=== PATIENT | female | born 1985 | race Caucasian/White ===

== ENCOUNTER 2017-04-11 11:37 | Inpatient (IN) | payer OTHER ==
[~2017-04-11] VITALS: Ht 170.2 cm; Wt 62.6 kg
[2017-04-11] MEDS ORDERED: Norco 5mg/325mg tab ORAL PRN ×2 (15:15→16:15)
[2017-04-11 16:00] VITALS: BP 98/66
[2017-04-11] MEDS ORDERED: D5 1/2NS 1,000 ML IV SCH (16:15)
--- NOTE | 2017-04-11 16:46 | History & Physical ---
History and Physical History & Physicial dictated for Int Med-Dr Davis no. [id number]. KULDIP WORTHINGTON Apr 11, 2017 16:46
[2017-04-11] MEDS ORDERED: Morphine Sulfate 2mg/ml Inj IM PRN (17:15)
[2017-04-11] MEDS ORDERED: DiphenhydrAMINE 50mg/ml Inj IVP PRN (17:15)
[2017-04-11 20:00] VITALS: BP 126/71
[2017-04-11 20:06] LABS: BASOPHILS % (AUTO) 1.1 % (0.0-2.0); EOSINOPHILS % (AUTO) 7.3 % (0.0-3.0); LYMPHOCYTES % (AUTO) 44.9 % (20.0-45.0); MEAN CORPUSCULAR HEMOGLOBIN 29.7 PG (27.0-31.0); MEAN CORPUSCULAR HGB CONC 31.7 G/DL (32.0-36.0); MEAN CORPUSCULAR VOLUME 94 FL (80-99); MEAN PLATELET VOLUME 7.7 FL (6.5-10.1); MONOCYTES % (AUTO) 8.9 % (1.0-10.0); NEUTROPHILS % (AUTO) 37.8 % (45.0-75.0); PLATELET COUNT 196 K/UL (150-450); RED BLOOD COUNT 4.23 M/UL (4.20-5.40); RED CELL DISTRIBUTION WIDTH 11.6 % (11.6-14.8); WHITE BLOOD COUNT 8.3 K/UL (4.8-10.8)
[2017-04-11 20:47] LABS: ALANINE AMINOTRANSFERASE 146 U/L (12-78); ALBUMIN/GLOBULIN RATIO 1.3 (1.0-2.7); ANION GAP 8 mmol/L (5-15); ASPARTATE AMINO TRANSFERASE 544 U/L (15-37); CALCIUM 8.8 MG/DL (8.5-10.1); CARBON DIOXIDE 24 MMOL/L (21-32); CHLORIDE 109 MMOL/L (98-107); CREATININE 0.8 MG/DL (0.55-1.30); GLOMERULAR FILTRATION RATE > 60 mL/min (>60); POTASSIUM 4.4 MMOL/L (3.5-5.1); SODIUM 141 MMOL/L (136-145); URIC ACID 3.8 MG/DL (2.6-7.2)
--- NOTE | 2017-04-11 22:30 | History and Physical Report ---
DATE OF ADMISSION: 04/11/2017 CHIEF COMPLAINT: The patient is a 32-year-old white female, presents with chief complaint of bilateral arm pain. HISTORY OF PRESENT ILLNESS: The patient states she went to the gym on 04/07/2017. The patient awoke on Monday morning with bilateral upper arm pain. The patient states her arms "on fire". This worsened from Monday to Monday. The patient presented to [facility] emergency room today 04/11/2017. CPK was found to be elevated at 25,603. The patient is admitted with bilateral upper extremity pain and rhabdomyolysis. PAST MEDICAL HISTORY: The patient denies. The patient has a history of childhood epilepsy, however, has not had a seizure since she was a child. PAST SURGICAL HISTORY: Significant for bilateral feet bunionectomy. CURRENT MEDICATIONS: Naprosyn 500 mg one tablet p.o. twice daily p.r.n. ALLERGIES: Phenobarbital. SOCIAL HISTORY: The patient is single and unemployed. The patient denies tobacco or alcohol use. FAMILY HISTORY: Negative for diabetes or coronary disease. REVIEW OF SYSTEMS: CONSTITUTIONAL: The patient denies weight loss or gain. The patient denies fevers or chills. HEENT: The patient denies ear or throat pain. The patient denies headache. CARDIOVASCULAR: The patient denies palpitations or chest pain. CHEST: The patient denies wheeze or shortness of breath. ABDOMEN: The patient denies nausea, vomiting, diarrhea, or constipation. GENITOURINARY: The patient denies dysuria or increased frequency of urination. NEUROMUSCULAR: The patient denies seizures or generalized weakness. PHYSICAL EXAMINATION: GENERAL: The patient is a well-developed and well-nourished, white female, in no apparent distress. VITAL SIGNS: Temperature is 98.5 degrees, respirations 16, pulse 65, and blood pressure 142/91. HEENT: Eyes, pupils equal and responsive to light and accommodation. Extraocular movements are intact. NECK: Supple without lymphadenopathy. CHEST: Lungs are clear to auscultation bilaterally without wheezes or rales. CARDIOVASCULAR: Regular rhythm and rate. S1 and S2 normal without murmurs, rubs, or gallops. ABDOMEN: Soft, nontender, and nondistended. Positive bowel sounds. No evidence of hepatosplenomegaly. Currently, no rebound or guarding noted. EXTREMITIES: Negative for clubbing, cyanosis, or edema. RECTAL/GENITAL: Refused. NEUROLOGIC: Cranial nerves II through XII are grossly intact without focal deficits. Motor strength is 5/5 bilaterally. Deep tendon reflexes are 2+ plantar. LABORATORY AND DIAGNOSTIC DATA: WBC 7.8, hemoglobin 13.7, hematocrit 40.5 and platelets 201,000. Sodium 134, potassium 3.5, chloride 99, CO2 27, BUN 17, creatinine 0.82 and glucose 92. Total CPK elevated at 25,603. BNP normal at 20. ALT elevated at 94 and AST elevated at 423. ASSESSMENT: This is a 32-year-old white female. 1. Bilateral arm pain. 2. Rhabdomyolysis. 3. Elevated liver function tests. TREATMENT: 1. Bilateral upper arm pain/rhabdomyolysis. The patient is currently receiving intravenous hydration. This will be continued until CPK levels have approached normal. Serial CPK levels will be performed daily. We will follow recommendations of Nephrology. 2. Elevated liver function tests, may be secondary to shock liver. A Gastroenterology consultation is pending. Driss Mcdonald M.D. DR: DICK JOB#: [id number] CC:
[2017-04-11] MEDS: Morphine Sulfate 2mg/ml Inj IVP PRN (23:44)
[2017-04-11 23:53] VITALS: BP 121/73
[2017-04-12 02:14] LABS: APPEARANCE,URINE CLEAR; KETONES,URINE NEGATIVE (NEGATIVE); LEUKOCYTE ESTERASE ,URINE 1+ (NEGATIVE); NITRITE,URINE NEGATIVE (NEGATIVE); PH,URINE 7 (4.5-8.0); PROTEIN,URINE NEGATIVE (NEGATIVE); UROBILINOGEN,URINE NORMAL MG/DL (0.0-1.0)
[2017-04-12 02:39] LABS: SQUAMOUS EPITHELIAL CELL,UR OCCASIONAL /LPF (NONE/OCC); WBC,URINE 0-2 /HPF (0 - 2)
[2017-04-12 03:29] VITALS: BP 108/51
[2017-04-12 07:41] LABS: BASOPHILS % (AUTO) 1.1 % (0.0-2.0); EOSINOPHILS % (AUTO) 9.2 % (0.0-3.0); LYMPHOCYTES % (AUTO) 48.2 % (20.0-45.0); MEAN CORPUSCULAR HEMOGLOBIN 31.9 PG (27.0-31.0); MEAN CORPUSCULAR HGB CONC 34.7 G/DL (32.0-36.0); MEAN CORPUSCULAR VOLUME 92 FL (80-99); MEAN PLATELET VOLUME 8.5 FL (6.5-10.1); MONOCYTES % (AUTO) 6.6 % (1.0-10.0); PLATELET COUNT 189 K/UL (150-450); RED BLOOD COUNT 4.01 M/UL (4.20-5.40); RED CELL DISTRIBUTION WIDTH 11.8 % (11.6-14.8)
[2017-04-12 08:00] VITALS: BP 130/58
[2017-04-12 08:24] LABS: ALANINE AMINOTRANSFERASE 142 U/L (12-78); ALBUMIN/GLOBULIN RATIO 1.2 (1.0-2.7); ANION GAP 10 mmol/L (5-15); ASPARTATE AMINO TRANSFERASE 532 U/L (15-37); CALCIUM 8.5 MG/DL (8.5-10.1); CARBON DIOXIDE 22 MMOL/L (21-32); CHLORIDE 109 MMOL/L (98-107); CKMB 5.4 NG/ML (0.0-3.6); CREATININE 0.6 MG/DL (0.55-1.30); GLOMERULAR FILTRATION RATE > 60 mL/min (>60); MAGNESIUM 1.6 MG/DL (1.8-2.4); PHOSPHORUS 3.9 MG/DL (2.5-4.9); POTASSIUM 4.2 MMOL/L (3.5-5.1); SODIUM 141 MMOL/L (136-145); TOTAL PROTEIN 5.7 G/DL (6.4-8.2)
--- NOTE | 2017-04-12 10:30 | Diagnostic Imaging Report ---
Indication: Abnormal renal function tests, history of rhabdomyolysis Technique: Grayscale and duplex images of the kidneys, retroperitoneum, and bladder were obtained. Comparison: Findings: Right kidney measures 11.9 cm in length. Left kidney measures 11.1 cm in length. Both kidneys demonstrate normal echogenicity. No hydronephrosis. There are small renal cysts bilaterally.. Color Doppler imaging demonstrates normal renal perfusion, no hypovascular areas to suggest infarction.. Normal inferior vena cava. Bladder is normal. Impression: Negative for hydronephrosis or other significant abnormality Incidental finding bilateral renal cysts.
[2017-04-12 12:00] VITALS: BP 124/78
--- NOTE | 2017-04-12 12:42 | Internal Med Progress Note ---
Subjective Date of Service: Apr 12, 2017 Physician Name Driss Worthington Attending Physician Indra Davis MD Current Medications Medications (Trade) Dose Ordered Sig/Marisol Route PRN Reason Start Time Stop Time Status Last Admin Dose Admin Acetaminophen (Tylenol) 650 mg Q4H PRN ORAL Mild Pain/Temp > 100.5 04/11/17 15:15 05/11/17 15:14 Diphenhydramine HCl (Benadryl) 25 mg Q6H PRN IVP Itching 04/11/17 17:15 05/11/17 17:14 Morphine Sulfate (Morphine Sulfate) 2 mg Q4H PRN IVP For Pain 4-10 04/11/17 19:45 04/18/17 19:44 04/11/17 23:44 Ondansetron HCl (Zofran) 4 mg Q4H PRN IVP Nausea & Vomiting 04/11/17 15:15 05/11/17 15:14 Sodium Chloride 1,000 ml @ 150 mls/hr Q6H40M IV 04/11/17 17:30 05/11/17 17:29 04/12/17 12:12 Allergies: Coded Allergies: HYDROCODONE (Verified Allergy, Mild, Itching, 04/11/17) PHENOBARBITAL (Verified Allergy, Unknown, rash, 04/11/17) 25 years ago, rash ROS Limited/Unobtainable: No Constitutional: Reports: no symptoms HEENT: Reports: no symptoms Cardiovascular: Reports: no symptoms Respiratory: Reports: no symptoms Gastrointestinal/Abdominal: Reports: no symptoms Genitourinary: Reports: no symptoms Neurologic/Psychiatric: Reports: no symptoms Subjective 32 YO F with bilat upper arm pain, now rhabdomyolysis. Wants ortho consult for possible "compartment syndrome". Objective Last Vital Signs Date Time Temp Pulse Resp B/P (MAP) Pulse Ox O2 Delivery O2 Flow Rate FiO2 04/12/17 12:00 98.1 59 13 124/78 99 Room Air General Appearance: WD/WN, no apparent distress, alert EENT: PERRL/EOMI, normal ENT inspection, TMs normal Neck: non-tender, normal alignment, supple Cardiovascular: normal peripheral pulses, normal rate, regular rhythm, no gallop/murmur, no JVD Respiratory/Chest: chest wall non-tender, lungs clear, normal breath sounds, no respiratory distress, no accessory muscle use Abdomen: normal bowel sounds, non tender, soft, no organomegaly, no mass Extremities: normal range of motion, non-tender 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6-14.8) 11.8 % (11.6-14.8) Platelet Count 196 K/UL (150-450) 189 K/UL (150-450) Mean Platelet Volume 7.7 FL (6.5-10.1) 8.5 FL (6.5-10.1) Neutrophils (%) (Auto) 37.8 % (45.0-75.0) L 35.0 % (45.0-75.0) L Lymphocytes (%) (Auto) 44.9 % (20.0-45.0) 48.2 % (20.0-45.0) H Monocytes (%) (Auto) 8.9 % (1.0-10.0) 6.6 % (1.0-10.0) Eosinophils (%) (Auto) 7.3 % (0.0-3.0) H 9.2 % (0.0-3.0) H Basophils (%) (Auto) 1.1 % (0.0-2.0) 1.1 % (0.0-2.0) Sodium Level 141 MMOL/L (136-145) 141 MMOL/L (136-145) Potassium Level 4.4 MMOL/L (3.5-5.1) 4.2 MMOL/L (3.5-5.1) Chloride Level 109 MMOL/L (98-107) H 109 MMOL/L (98-107) H Carbon Dioxide Level 24 MMOL/L (21-32) 22 MMOL/L (21-32) Anion Gap 8 mmol/L (5-15) 10 mmol/L (5-15) Blood Urea Nitrogen 11 mg/dL (7-18) 12 mg/dL (7-18) Creatinine 0.8 MG/DL (0.55-1.30) 0.6 MG/DL (0.55-1.30) Estimat Glomerular Filtration Rate > 60 mL/min (>60) > 60 mL/min (>60) Glucose Level 89 MG/DL (74-106) 87 MG/DL (74-106) Uric Acid 3.8 MG/DL (2.6-7.2) Calcium Level 8.8 MG/DL (8.5-10.1) 8.5 MG/DL (8.5-10.1) Total Bilirubin 0.6 MG/DL (0.2-1.0) 0.4 MG/DL (0.2-1.0) Aspartate Amino Transf (AST/SGOT) 544 U/L (15-37) H 532 U/L (15-37) H Alanine Aminotransferase (ALT/SGPT) 146 U/L (12-78) H 142 U/L (12-78) H Alkaline Phosphatase 55 U/L (46-116) 49 U/L (46-116) Total Creatine Kinase > 1000 U/L (26-308) H 36234 U/L (26-308) H Total Protein 6.0 G/DL (6.4-8.2) L 5.7 G/DL (6.4-8.2) L Albumin 3.4 G/DL (3.4-5.0) 3.1 G/DL (3.4-5.0) L Globulin 2.6 g/dL 2.6 g/dL Albumin/Globulin Ratio 1.3 (1.0-2.7) 1.2 (1.0-2.7) Urine Color Pale yellow Urine Appearance Clear Urine pH 7 (4.5-8.0) Urine Specific [place] 1.005 (1.005-1.035) Urine Protein Negative (NEGATIVE) Urine Glucose (UA) Negative (NEGATIVE) Urine Ketones Negative (NEGATIVE) Urine Occult Blood 1+ (NEGATIVE) H Urine Nitrite Negative (NEGATIVE) Urine Bilirubin Negative (NEGATIVE) Urine Urobilinogen Normal MG/DL (0.0-1.0) Urine Leukocyte Esterase 1+ (NEGATIVE) H Urine RBC 2-4 /HPF (0 - 2) H Urine WBC 0-2 /HPF (0 - 2) Urine Squamous Epithelial Cells Occasional /LPF Urine Bacteria None /HPF (NONE) Urine Eosinophils None seen Urine Random Sodium 81 MEQ/L (20-110) Urine Potassium Timed 13 mmol/L (12-62) Erythrocyte Sedimentation Rate 5 MM/HR (0-20) Phosphorus Level 3.9 MG/DL (2.5-4.9) Magnesium Level 1.6 MG/DL (1.8-2.4) L Creatine Kinase MB 5.4 NG/ML (0.0-3.6) H Creatine Kinase MB Relative Index 0.0 C-Reactive Protein, Quantitative < 0.4 mg/dL (0.00-0.90) Assessment/Plan Problem List: (1) rhabdomyolitis Assessment & Plan: Improving. Await ortho consult. (2) Arm pain (3) Elevated liver enzymes Assessment & Plan: Await GI consult. Status: progressing DRISS WORTHINGTON Apr 12, 2017 12:42
[2017-04-12] MEDS ORDERED: D5 1/2NS 1000ml IV ONE (15:53)
[2017-04-12] MEDS ORDERED: Tubing IV Secondary IV ONE (15:53)
[2017-04-12 16:15] VITALS: BP 111/54
--- NOTE | 2017-04-12 17:38 | Consultation ---
History of Present Illness General Date patient seen: Apr 12, 2017 Referring physician: Dr. Mcdonald Reason for Consultation: inpatient management Present Illness HPI 32 years presents with severe bilateral biceps pain, after heavy exercise. Pt was seen by [facility] and was diagnosed with rhabdomyolysis and transferred to [facility]. Allergies: Coded Allergies: HYDROCODONE (Verified Allergy, Mild, Itching, 04/11/17) PHENOBARBITAL (Verified Allergy, Unknown, rash, 04/11/17) 25 years ago, rash Patient History Healthcare decision maker Resuscitation status Full Code Advanced Directive on File No Review of Systems Musculoskeletal: Reports: muscle pain All Other Systems: negative except mentioned in HPI Physical Exam General Appearance: WD/WN HEENT: normocephalic, atraumatic Neck: non-tender, normal alignment Respiratory/Chest: chest wall non-tender, normal breath sounds Breasts: no masses Cardiovascular/Chest: normal rate Last 24 Hour Vital Signs Date Time Temp Pulse Resp B/P (MAP) Pulse Ox O2 Delivery O2 Flow Rate FiO2 04/12/17 16:15 97.9 52 21 111/54 97 Room Air 04/12/17 12:00 98.1 59 13 124/78 99 Room Air 04/12/17 08:00 96.8 56 16 130/58 97 Room Air 04/12/17 03:29 97.7 51 20 108/51 97 Room Air 04/11/17 23:53 98.1 67 20 121/73 98 Room Air 04/11/17 20:00 97.9 55 20 126/71 97 Room Air 55 Laboratory Tests Test 04/11/17 19:25 04/12/17 01:00 04/12/17 06:25 White Blood Count 8.3 K/UL (4.8-10.8) 8.0 K/UL (4.8-10.8) Red Blood Count 4.23 M/UL (4.20-5.40) 4.01 M/UL (4.20-5.40) L Hemoglobin 12.6 G/DL (12.0-16.0) 12.8 G/DL (12.0-16.0) Hematocrit 39.6 % (37.0-47.0) 36.9 % (37.0-47.0) L Mean Corpuscular Volume 94 FL (80-99) 92 FL (80-99) Mean Corpuscular Hemoglobin 29.7 PG (27.0-31.0) 31.9 PG (27.0-31.0) H Mean Corpuscular Hemoglobin Concent 31.7 G/DL (32.0-36.0) L 34.7 G/DL (32.0-36.0) Red Cell Distribution Width 11.6 % (11.6-14.8) 11.8 % (11.6-14.8) Platelet Count 196 K/UL (150-450) 189 K/UL (150-450) Mean Platelet Volume 7.7 FL (6.5-10.1) 8.5 FL (6.5-10.1) Neutrophils (%) (Auto) 37.8 % (45.0-75.0) L 35.0 % (45.0-75.0) L Lymphocytes (%) (Auto) 44.9 % (20.0-45.0) 48.2 % (20.0-45.0) H Monocytes (%) (Auto) 8.9 % (1.0-10.0) 6.6 % (1.0-10.0) Eosinophils (%) (Auto) 7.3 % (0.0-3.0) H 9.2 % (0.0-3.0) H Basophils (%) (Auto) 1.1 % (0.0-2.0) 1.1 % (0.0-2.0) Sodium Level 141 MMOL/L (136-145) 141 MMOL/L (136-145) Potassium Level 4.4 MMOL/L (3.5-5.1) 4.2 MMOL/L (3.5-5.1) Chloride Level 109 MMOL/L (98-107) H 109 MMOL/L (98-107) H Carbon Dioxide Level 24 MMOL/L (21-32) 22 MMOL/L (21-32) Anion Gap 8 mmol/L (5-15) 10 mmol/L (5-15) Blood Urea Nitrogen 11 mg/dL (7-18) 12 mg/dL (7-18) Creatinine 0.8 MG/DL (0.55-1.30) 0.6 MG/DL (0.55-1.30) Estimat Glomerular Filtration Rate > 60 mL/min (>60) > 60 mL/min (>60) Glucose Level 89 MG/DL (74-106) 87 MG/DL (74-106) Uric Acid 3.8 MG/DL (2.6-7.2) Calcium Level 8.8 MG/DL (8.5-10.1) 8.5 MG/DL (8.5-10.1) Total Bilirubin 0.6 MG/DL (0.2-1.0) 0.4 MG/DL (0.2-1.0) Aspartate Amino Transf (AST/SGOT) 544 U/L (15-37) H 532 U/L (15-37) H Alanine Aminotransferase (ALT/SGPT) 146 U/L (12-78) H 142 U/L (12-78) H Alkaline Phosphatase 55 U/L (46-116) 49 U/L (46-116) Total Creatine Kinase > 1000 U/L (26-308) H 47808 U/L (26-308) H Total Protein 6.0 G/DL (6.4-8.2) L 5.7 G/DL (6.4-8.2) L Albumin 3.4 G/DL (3.4-5.0) 3.1 G/DL (3.4-5.0) L Globulin 2.6 g/dL 2.6 g/dL Albumin/Globulin Ratio 1.3 (1.0-2.7) 1.2 (1.0-2.7) Urine Color Pale yellow Urine Appearance Clear Urine pH 7 (4.5-8.0) Urine Specific [place] 1.005 (1.005-1.035) Urine Protein Negative (NEGATIVE) Urine Glucose (UA) Negative (NEGATIVE) Urine Ketones Negative (NEGATIVE) Urine Occult Blood 1+ (NEGATIVE) H Urine Nitrite Negative (NEGATIVE) Urine Bilirubin Negative (NEGATIVE) Urine Urobilinogen Normal MG/DL (0.0-1.0) Urine Leukocyte Esterase 1+ (NEGATIVE) H Urine RBC 2-4 /HPF (0 - 2) H Urine WBC 0-2 /HPF (0 - 2) Urine Squamous Epithelial Cells Occasional /LPF Urine Bacteria None /HPF (NONE) Urine Eosinophils None seen Urine Random Sodium 81 MEQ/L (20-110) Urine Potassium Timed 13 mmol/L (12-62) Erythrocyte Sedimentation Rate 5 MM/HR (0-20) Phosphorus Level 3.9 MG/DL (2.5-4.9) Magnesium Level 1.6 MG/DL (1.8-2.4) L Creatine Kinase MB 5.4 NG/ML (0.0-3.6) H Creatine Kinase MB Relative Index 0.0 C-Reactive Protein, Quantitative < 0.4 mg/dL (0.00-0.90) Height (Feet): 5 Height (Inches): 7.00 Weight (Pounds): 138 Medications Current Medications Medications (Trade) Dose Ordered Sig/Marisol Route PRN Reason Start Time Stop Time Status Last Admin Dose Admin Acetaminophen (Tylenol) 650 mg Q4H PRN ORAL Mild Pain/Temp > 100.5 04/11/17 15:15 05/11/17 15:14 Diphenhydramine HCl (Benadryl) 25 mg Q6H PRN IVP Itching 04/11/17 17:15 05/11/17 17:14 Morphine Sulfate (Morphine Sulfate) 2 mg Q4H PRN IVP For Pain 4-10 04/11/17 19:45 04/18/17 19:44 04/11/17 23:44 Ondansetron HCl (Zofran) 4 mg Q4H PRN IVP Nausea & Vomiting 04/11/17 15:15 05/11/17 15:14 Sodium Chloride 1,000 ml @ 150 mls/hr Q6H40M IV 04/11/17 17:30 05/11/17 17:29 04/12/17 12:12 Assessment/Plan Problem List: (1) rhabdomyolitis (2) Arm pain ICD Codes: M79.603 - Pain in arm, unspecified SNOMED: [id number] Assessment/Plan iv fluids check electrolytes check CPK [email or web address] Nicole Apr 12, 2017 17:38
--- NOTE | 2017-04-12 18:24 | GI Initial Consult Note ---
History of Present Illness General Date patient seen: Apr 12, 2017 Time patient seen: 10:00 Reason for Hospitalization: RHABDOMYLYSIS Referring physician: Dr. Mcdonald Reason for Consultation: ELEVATED LFTs Present Illness HPI The patient is a 32-year-old white female, presents with chief complaint of bilateral arm pain. The patient states she went to the gym on 04/07/2017. The patient awoke on Monday morning with bilateral upper arm pain. The patient states her arms "on fire". This worsened from Monday to Monday. The patient presented to [facility] emergency room today 04/11/2017. CPK was found to be elevated at 25,603. The patient is admitted with bilateral upper extremity pain and rhabdomyolysis. GI consulted for elevated LFTs. HPI as noted above. Pt seen on floor, awake A& Ox4 NAD with no active s/sx of N/V/D. Still c/o of arm pain, tender but tolerable. She presents today with elevated LFTs and elevated CK. No other noted medical history. Med list reviewed/reconciled: Yes Allergies: Coded Allergies: HYDROCODONE (Verified Allergy, Mild, Itching, 04/11/17) PHENOBARBITAL (Verified Allergy, Unknown, rash, 04/11/17) 25 years ago, rash Patient History History Provided By: Patient, Medical Record [facility] Narrative PAST MEDICAL HISTORY: The patient denies. The patient has a history of childhood epilepsy, however, has not had a seizure since she was a child. PAST SURGICAL HISTORY: Significant for bilateral feet bunionectomy. Social History: Denies: smoking, alcohol use, drug use, other Review of Systems All Other Systems: negative except mentioned in HPI Physical Exam Vital Signs Date Time Temp Pulse Resp B/P (MAP) Pulse Ox O2 Delivery O2 Flow Rate FiO2 04/11/17 16:00 98.2 62 16 98/66 98 04/11/17 20:00 Room Air Sp02 EP Interpretation: reviewed, normal Labs Laboratory Tests Test 04/11/17 19:25 04/12/17 01:00 04/12/17 06:25 White Blood Count 8.3 K/UL (4.8-10.8) 8.0 K/UL (4.8-10.8) Red Blood Count 4.23 M/UL (4.20-5.40) 4.01 M/UL (4.20-5.40) L Hemoglobin 12.6 G/DL (12.0-16.0) 12.8 G/DL (12.0-16.0) Hematocrit 39.6 % (37.0-47.0) 36.9 % (37.0-47.0) L Mean Corpuscular Volume 94 FL (80-99) 92 FL (80-99) Mean Corpuscular Hemoglobin 29.7 PG (27.0-31.0) 31.9 PG (27.0-31.0) H Mean Corpuscular Hemoglobin Concent 31.7 G/DL (32.0-36.0) L 34.7 G/DL (32.0-36.0) Red Cell Distribution Width 11.6 % (11.6-14.8) 11.8 % (11.6-14.8) Platelet Count 196 K/UL (150-450) 189 K/UL (150-450) Mean Platelet Volume 7.7 FL (6.5-10.1) 8.5 FL (6.5-10.1) Neutrophils (%) (Auto) 37.8 % (45.0-75.0) L 35.0 % (45.0-75.0) L Lymphocytes (%) (Auto) 44.9 % (20.0-45.0) 48.2 % (20.0-45.0) H Monocytes (%) (Auto) 8.9 % (1.0-10.0) 6.6 % (1.0-10.0) Eosinophils (%) (Auto) 7.3 % (0.0-3.0) H 9.2 % (0.0-3.0) H Basophils (%) (Auto) 1.1 % (0.0-2.0) 1.1 % (0.0-2.0) Sodium Level 141 MMOL/L (136-145) 141 MMOL/L (136-145) Potassium Level 4.4 MMOL/L (3.5-5.1) 4.2 MMOL/L (3.5-5.1) Chloride Level 109 MMOL/L (98-107) H 109 MMOL/L (98-107) H Carbon Dioxide Level 24 MMOL/L (21-32) 22 MMOL/L (21-32) Anion Gap 8 mmol/L (5-15) 10 mmol/L (5-15) Blood Urea Nitrogen 11 mg/dL (7-18) 12 mg/dL (7-18) Creatinine 0.8 MG/DL (0.55-1.30) 0.6 MG/DL (0.55-1.30) Estimat Glomerular Filtration Rate > 60 mL/min (>60) > 60 mL/min (>60) Glucose Level 89 MG/DL (74-106) 87 MG/DL (74-106) Uric Acid 3.8 MG/DL (2.6-7.2) Calcium Level 8.8 MG/DL (8.5-10.1) 8.5 MG/DL (8.5-10.1) Total Bilirubin 0.6 MG/DL (0.2-1.0) 0.4 MG/DL (0.2-1.0) Aspartate Amino Transf (AST/SGOT) 544 U/L (15-37) H 532 U/L (15-37) H Alanine Aminotransferase (ALT/SGPT) 146 U/L (12-78) H 142 U/L (12-78) H Alkaline Phosphatase 55 U/L (46-116) 49 U/L (46-116) Total Creatine Kinase > 1000 U/L (26-308) H 25899 U/L (26-308) H Total Protein 6.0 G/DL (6.4-8.2) L 5.7 G/DL (6.4-8.2) L Albumin 3.4 G/DL (3.4-5.0) 3.1 G/DL (3.4-5.0) L Globulin 2.6 g/dL 2.6 g/dL Albumin/Globulin Ratio 1.3 (1.0-2.7) 1.2 (1.0-2.7) Urine Color Pale yellow Urine Appearance Clear Urine pH 7 (4.5-8.0) Urine Specific [place] 1.005 (1.005-1.035) Urine Protein Negative (NEGATIVE) Urine Glucose (UA) Negative (NEGATIVE) Urine Ketones Negative (NEGATIVE) Urine Occult Blood 1+ (NEGATIVE) H Urine Nitrite Negative (NEGATIVE) Urine Bilirubin Negative (NEGATIVE) Urine Urobilinogen Normal MG/DL (0.0-1.0) Urine Leukocyte Esterase 1+ (NEGATIVE) H Urine RBC 2-4 /HPF (0 - 2) H Urine WBC 0-2 /HPF (0 - 2) Urine Squamous Epithelial Cells Occasional /LPF Urine Bacteria None /HPF (NONE) Urine Eosinophils None seen Urine Random Sodium 81 MEQ/L (20-110) Urine Potassium Timed 13 mmol/L (12-62) Erythrocyte Sedimentation Rate 5 MM/HR (0-20) Phosphorus Level 3.9 MG/DL (2.5-4.9) Magnesium Level 1.6 MG/DL (1.8-2.4) L Creatine Kinase MB 5.4 NG/ML (0.0-3.6) H Creatine Kinase MB Relative Index 0.0 C-Reactive Protein, Quantitative < 0.4 mg/dL (0.00-0.90) General Appearance: well appearing, no apparent distress, alert Head: normocephalic EENT: PERRL/EOMI, normal ENT inspection Neck: supple Respiratory: normal breath sounds, no respiratory distress Cardiovascular: normal rate Gastrointestinal: normal inspection, non tender, soft, normal bowel sounds, non -distended Rectal: deferred Genitourinary: no CVA tenderness Musculoskeletal: normal inspection, back normal Neurologic: normal inspection, alert, oriented x3, responsive Psychiatric: normal inspection, judgement/insight normal, memory normal Skin: normal inspection, normal color, no rash, warm/dry, palpation normal, well hydrated Lymphatic: normal inspection, no adenopathy Current Medications Current Medications Medications (Trade) Dose Ordered Sig/Marisol Route PRN Reason Start Time Stop Time Status Last Admin Dose Admin Acetaminophen (Tylenol) 650 mg Q4H PRN ORAL Mild Pain/Temp > 100.5 04/11/17 15:15 05/11/17 15:14 Diphenhydramine HCl (Benadryl) 25 mg Q6H PRN IVP Itching 04/11/17 17:15 05/11/17 17:14 Morphine Sulfate (Morphine Sulfate) 2 mg Q4H PRN IVP For Pain 4-10 04/11/17 19:45 04/18/17 19:44 04/11/17 23:44 Ondansetron HCl (Zofran) 4 mg Q4H PRN IVP Nausea & Vomiting 04/11/17 15:15 05/11/17 15:14 Sodium Chloride 1,000 ml @ 150 mls/hr Q6H40M IV 04/11/17 17:30 05/11/17 17:29 04/12/17 12:12 GI: Plan Problems: (1) Shock liver (2) Elevated liver enzymes (3) Arm pain Plan symptomatic treatment at this time elevated LFTs most likely due to shock, will monitor at this time pain mgmt zofran prn electrolyte replacement fu labs Discussed with Dr. Quiñones. Thank you for this patient referral, we will follow. Michelle Wick N.P. Apr 12, 2017 18:24
[2017-04-12 20:00] VITALS: BP 105/50
[2017-04-12] MEDS: Morphine Sulfate 2mg/ml Inj IVP PRN (22:14)
--- NOTE | 2017-04-12 23:29 | Diagnostic Imaging Report ---
APPROVED REPORT CPT Code: 59339 Present Symptoms Comments: Pain BILATERAL UPPER EXTREMITY: Imaging reveals patency of the internal jugular, subclavian, axillary and brachial veins. The cephalic and basilic veins are also patent. Doppler indicates normal spontaneous flow within these venous segments, bilaterally.
[2017-04-13] VITALS: BP 102/55
[2017-04-13 04:00] VITALS: BP 99/50
[2017-04-13 07:50] VITALS: BP 117/66
[2017-04-13 07:50] LABS: EOSINOPHILS % (AUTO) 9.9 % (0.0-3.0); LYMPHOCYTES % (AUTO) 46.1 % (20.0-45.0); MEAN CORPUSCULAR HEMOGLOBIN 31.2 PG (27.0-31.0); MEAN CORPUSCULAR HGB CONC 33.7 G/DL (32.0-36.0); MEAN CORPUSCULAR VOLUME 93 FL (80-99); MEAN PLATELET VOLUME 8.6 FL (6.5-10.1); MONOCYTES % (AUTO) 6.9 % (1.0-10.0); NEUTROPHILS % (AUTO) 36.1 % (45.0-75.0); PLATELET COUNT 179 K/UL (150-450); RED BLOOD COUNT 3.93 M/UL (4.20-5.40); RED CELL DISTRIBUTION WIDTH 11.4 % (11.6-14.8); WHITE BLOOD COUNT 8.7 K/UL (4.8-10.8)
[2017-04-13 08:04] LABS: ALANINE AMINOTRANSFERASE 167 U/L (12-78); ALBUMIN/GLOBULIN RATIO 1.1 (1.0-2.7); ANION GAP 7 mmol/L (5-15); ASPARTATE AMINO TRANSFERASE 569 U/L (15-37); CALCIUM 8.6 MG/DL (8.5-10.1); CARBON DIOXIDE 26 MMOL/L (21-32); CHLORIDE 109 MMOL/L (98-107); CREATININE 0.7 MG/DL (0.55-1.30); GLOMERULAR FILTRATION RATE > 60 mL/min (>60); POTASSIUM 4.1 MMOL/L (3.5-5.1); SODIUM 141 MMOL/L (136-145); TOTAL PROTEIN 5.8 G/DL (6.4-8.2)
[2017-04-13 11:34] VITALS: BP 107/60
[2017-04-13 16:15] VITALS: BP 111/59
--- NOTE | 2017-04-13 16:58 | GI Progress Note ---
Assessment/Plan Problems: (1) Shock liver ICD Codes: K72.00 - Acute and subacute hepatic failure without coma SNOMED: 828513237 (2) Elevated liver enzymes ICD Codes: R74.8 - Abnormal levels of other serum enzymes SNOMED: 209167110, 751322199 (3) Arm pain ICD Codes: M79.603 - Pain in arm, unspecified SNOMED: 119903886 (4) rhabdomyolitis Status: progressing Status Narrative Discussed with Dr. Quiñones. Assessment/Plan elevated LFTs most likely due to shock liver 2/2 rhabdo, will monitor at this time symptomatic treatment at this time pain mgmt zofran prn electrolyte replacement fu labs Subjective Subjective arm pain has improved Objective Last 24 Hour Vital Signs Date Time Temp Pulse Resp B/P (MAP) Pulse Ox O2 Delivery O2 Flow Rate FiO2 04/13/17 16:15 98.6 57 21 111/59 97 Room Air 04/13/17 11:34 98.2 69 19 107/60 98 Room Air 04/13/17 07:50 97.9 59 19 117/66 99 Room Air 04/13/17 04:00 97.3 55 18 99/50 98 Room Air 04/13/17 00:00 98.0 51 18 102/55 98 Room Air 04/12/17 20:00 98.0 61 18 105/50 98 Room Air Intake and Output 04/13/17 04/14/17 19:00 07:00 Intake Total 710 ml Output Total 520 ml Balance 190 ml Intake Oral 560 ml IV Total 150 ml Output Urine Total 520 ml Laboratory Tests Test 04/13/17 06:10 White Blood Count 8.7 K/UL (4.8-10.8) Red Blood Count 3.93 M/UL (4.20-5.40) L Hemoglobin 12.3 G/DL (12.0-16.0) Hematocrit 36.4 % (37.0-47.0) L Mean Corpuscular Volume 93 FL (80-99) Mean Corpuscular Hemoglobin 31.2 PG (27.0-31.0) H Mean Corpuscular Hemoglobin Concent 33.7 G/DL (32.0-36.0) Red Cell Distribution Width 11.4 % (11.6-14.8) L Platelet Count 179 K/UL (150-450) Mean Platelet Volume 8.6 FL (6.5-10.1) Neutrophils (%) (Auto) 36.1 % (45.0-75.0) L Lymphocytes (%) (Auto) 46.1 % (20.0-45.0) H Monocytes (%) (Auto) 6.9 % (1.0-10.0) Eosinophils (%) (Auto) 9.9 % (0.0-3.0) H Basophils (%) (Auto) 1.0 % (0.0-2.0) Sodium Level 141 MMOL/L (136-145) Potassium Level 4.1 MMOL/L (3.5-5.1) Chloride Level 109 MMOL/L (98-107) H Carbon Dioxide Level 26 MMOL/L (21-32) Anion Gap 7 mmol/L (5-15) Blood Urea Nitrogen 14 mg/dL (7-18) Creatinine 0.7 MG/DL (0.55-1.30) Estimat Glomerular Filtration Rate > 60 mL/min (>60) Glucose Level 88 MG/DL (74-106) Calcium Level 8.6 MG/DL (8.5-10.1) Total Bilirubin 0.4 MG/DL (0.2-1.0) Aspartate Amino Transf (AST/SGOT) 569 U/L (15-37) H Alanine Aminotransferase (ALT/SGPT) 167 U/L (12-78) H Alkaline Phosphatase 49 U/L (46-116) Total Creatine Kinase 98007 U/L (26-308) H Total Protein 5.8 G/DL (6.4-8.2) L Albumin 3.1 G/DL (3.4-5.0) L Globulin 2.7 g/dL Albumin/Globulin Ratio 1.1 (1.0-2.7) Height (Feet): 5 Height (Inches): 7.00 Weight (Pounds): 138 General Appearance: WD/WN, no apparent distress, alert Cardiovascular: normal rate Respiratory/Chest: normal breath sounds, no respiratory distress Abdominal Exam: normal bowel sounds, non tender, soft Extremities: normal range of motion, non-tender Michelle Wick N.PJoselyn Apr 13, 2017 16:58
--- NOTE | 2017-04-13 19:17 | Internal Med Progress Note ---
Subjective Date of Service: Apr 13, 2017 Physician Name Driss Worthington Attending Physician Indra Davis MD Current Medications Medications (Trade) Dose Ordered Sig/Marisol Route PRN Reason Start Time Stop Time Status Last Admin Dose Admin Acetaminophen (Tylenol) 650 mg Q4H PRN ORAL Mild Pain/Temp > 100.5 04/11/17 15:15 05/11/17 15:14 Diphenhydramine HCl (Benadryl) 25 mg Q6H PRN IVP Itching 04/11/17 17:15 05/11/17 17:14 Morphine Sulfate (Morphine Sulfate) 2 mg Q4H PRN IVP For Pain 4-10 04/11/17 19:45 04/18/17 19:44 04/12/17 22:14 Ondansetron HCl (Zofran) 4 mg Q4H PRN IVP Nausea & Vomiting 04/11/17 15:15 05/11/17 15:14 Sodium Chloride 1,000 ml @ 200 mls/hr Q5H IV 04/13/17 13:30 05/13/17 13:29 04/13/17 18:33 Allergies: Coded Allergies: HYDROCODONE (Verified Allergy, Mild, Itching, 04/11/17) PHENOBARBITAL (Verified Allergy, Unknown, rash, 04/11/17) 25 years ago, rash ROS Limited/Unobtainable: No Constitutional: Reports: no symptoms HEENT: Reports: no symptoms Cardiovascular: Reports: no symptoms Respiratory: Reports: no symptoms Gastrointestinal/Abdominal: Reports: no symptoms Genitourinary: Reports: no symptoms Neurologic/Psychiatric: Reports: no symptoms Subjective 32 YO F with bilat upper arm pain, now rhabdomyolysis. Wants ortho consult for possible "compartment syndrome". Very anxious about liver funct tests-wants hepatic ultrasound Objective Last Vital Signs Date Time Temp Pulse Resp B/P (MAP) Pulse Ox O2 Delivery O2 Flow Rate FiO2 04/13/17 16:15 98.6 57 21 111/59 97 Room Air Laboratory Tests Test 04/13/17 06:10 White Blood Count 8.7 K/UL (4.8-10.8) Red Blood Count 3.93 M/UL (4.20-5.40) L Hemoglobin 12.3 G/DL (12.0-16.0) Hematocrit 36.4 % (37.0-47.0) L Mean Corpuscular Volume 93 FL (80-99) Mean Corpuscular Hemoglobin 31.2 PG (27.0-31.0) H Mean Corpuscular Hemoglobin Concent 33.7 G/DL (32.0-36.0) Red Cell Distribution Width 11.4 % (11.6-14.8) L Platelet Count 179 K/UL (150-450) Mean Platelet Volume 8.6 FL (6.5-10.1) Neutrophils (%) (Auto) 36.1 % (45.0-75.0) L Lymphocytes (%) (Auto) 46.1 % (20.0-45.0) H Monocytes (%) (Auto) 6.9 % (1.0-10.0) Eosinophils (%) (Auto) 9.9 % (0.0-3.0) H Basophils (%) (Auto) 1.0 % (0.0-2.0) Sodium Level 141 MMOL/L (136-145) Potassium Level 4.1 MMOL/L (3.5-5.1) Chloride Level 109 MMOL/L (98-107) H Carbon Dioxide Level 26 MMOL/L (21-32) Anion Gap 7 mmol/L (5-15) Blood Urea Nitrogen 14 mg/dL (7-18) Creatinine 0.7 MG/DL (0.55-1.30) Estimat Glomerular Filtration Rate > 60 mL/min (>60) Glucose Level 88 MG/DL (74-106) Calcium Level 8.6 MG/DL (8.5-10.1) Total Bilirubin 0.4 MG/DL (0.2-1.0) Aspartate Amino Transf (AST/SGOT) 569 U/L (15-37) H Alanine Aminotransferase (ALT/SGPT) 167 U/L (12-78) H Alkaline Phosphatase 49 U/L (46-116) Total Creatine Kinase 34358 U/L (26-308) H Total Protein 5.8 G/DL (6.4-8.2) L Albumin 3.1 G/DL (3.4-5.0) L Globulin 2.7 g/dL Albumin/Globulin Ratio 1.1 (1.0-2.7) Intake and Output 04/13/17 04/14/17 19:00 07:00 Intake Total 710 ml Output Total 520 ml Balance 190 ml Intake Oral 560 ml IV Total 150 ml Output Urine Total 520 ml Objective General Appearance: WD/WN, no apparent distress, alert EENT: PERRL/EOMI, normal ENT inspection, TMs normal Neck: non-tender, normal alignment, supple Cardiovascular: normal peripheral pulses, normal rate, regular rhythm, no gallop/murmur, no JVD Respiratory/Chest: chest wall non-tender, lungs clear, normal breath sounds, no respiratory distress, no accessory muscle use Abdomen: normal bowel sounds, non tender, soft, no organomegaly, no mass Extremities: normal range of motion, non-tender 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 Await ortho consult. (2) Arm pain (3) Elevated liver enzymes Assessment & Plan: Await GI consult. Abdominal ultrasound pending Status: not improved DRISS WORTHINGTON Apr 13, 2017 19:17
[2017-04-13 20:00] VITALS: BP 124/73
[2017-04-14] VITALS: BP 109/60
[2017-04-14] MEDS: Morphine Sulfate 2mg/ml Inj IVP PRN (00:32)
--- NOTE | 2017-04-14 02:16 | Consultation ---
DATE OF CONSULTATION: 04/12/2017 REQUESTING PHYSICIANS: Driss Mcdonald M.D. and Indra Davis M.D. CHIEF COMPLAINT: Bilateral arm pain. HISTORY OF PRESENT ILLNESS: The patient is a pleasant 32-year-old female, who approximately on Monday worked up, she woke up on Monday and was not able to extend her arm. She has significant pain and swelling in both the biceps. She was concerned. She presented to the ER. She was admitted for evaluation. She was noted to have increased CPK values and she was admitted for appropriate treatment for rhabdomyolysis. Orthopedic consultation obtained for further care and recommendations. PAST MEDICAL HISTORY: Reviewed from the intake chart. PAST SURGICAL HISTORY: Reviewed from the intake chart. MEDICATIONS: Reviewed from the intake chart. PHYSICAL EXAMINATION: GENERAL: The patient is alert and oriented. She is resting comfortable on bed. EXTREMITIES: Left arm examination shows incisions along the anterior and posterior aspects, which are completely healed. She has full range of motion on the left arm, shoulder, and wrist. Neurovascular exam is normal. ASSESSMENT: Bilateral upper extremity rhabdomyolysis. DISCUSSION: At this point, what I recommend is basically supportive care for the rhabdomyolysis with appropriate IV hydration. I discussed with her that I do not think there should be any permanent muscle damage due to the rhabdomyolysis. I am not sure exactly why she developed rhabdomyolysis; it may be due the way that she worked out as well as dehydration. The patient can follow up as needed in the future for further care and recommendations. Caleb Person M.D. DR: Teri JOB#: [id number] CC:
--- NOTE | 2017-04-14 07:58 | Pulmonology Progress Note ---
Assessment/Plan Assessment/Plan ASSESSMENT acute rhabdo bilateral arm pain elevated LFT duet o rhabdo vs shock liver PLAN OF CARE MS floor aggressive IVF trend CK, LFT CK with trend down but LFT rising up abdominal US hepatitis panel nephro follows elevated LFT likely due to rhabdo however due to trend up check hep panel GI follows abd US Negative for gallstones or dilated ducts Slightly coarsened hepatic echotexture, nonspecific if real, could indicate hepatocellular disease Pain management Venous Duplex BUE negative Renal parameters stable renal US neg case discussed and evaluated by supervising physician Subjective Allergies: Coded Allergies: HYDROCODONE (Verified Allergy, Mild, Itching, 04/11/17) PHENOBARBITAL (Verified Allergy, Unknown, rash, 04/11/17) 25 years ago, rash Subjective denies abdominal pain, CK with small trend down but LFT up afebrile, no leukocytosis anxious pain in arm improving Objective Last 24 Hour Vital Signs Date Time Temp Pulse Resp B/P (MAP) Pulse Ox O2 Delivery O2 Flow Rate FiO2 04/14/17 00:00 98.2 63 18 109/60 100 Room Air 04/13/17 20:00 98.2 62 18 124/73 100 Room Air 04/13/17 16:15 98.6 57 21 111/59 97 Room Air 04/13/17 11:34 98.2 69 19 107/60 98 Room Air General Appearance: WD/WN, no acute distress HEENT: normocephalic, atraumatic, anicteric, mucous membranes moist, PERRL Respiratory/Chest: chest wall non-tender, lungs clear, no respiratory distress , no accessory muscle use Cardiovascular: normal peripheral pulses, normal rate, regular rhythm, no JVD Abdomen: normal bowel sounds, soft, non tender, non distended Genitourinary: normal external genitalia Extremities: no edema, pedal pulses normal Neurologic/Psychiatric: [employer] II-XII grossly normal, no motor/sensory deficits, alert, oriented x 3, responsive Lymphatic: no neck adenopathy Musculoskeletal: normal muscle bulk Current Medications Medications (Trade) Dose Ordered Sig/Marisol Route PRN Reason Start Time Stop Time Status Last Admin Dose Admin Acetaminophen (Tylenol) 650 mg Q4H PRN ORAL Mild Pain/Temp > 100.5 04/11/17 15:15 05/11/17 15:14 Diphenhydramine HCl (Benadryl) 25 mg Q6H PRN IVP Itching 04/11/17 17:15 05/11/17 17:14 Morphine Sulfate (Morphine Sulfate) 2 mg Q4H PRN IVP For Pain 4-10 04/11/17 19:45 04/18/17 19:44 04/14/17 00:32 Ondansetron HCl (Zofran) 4 mg Q4H PRN IVP Nausea & Vomiting 04/11/17 15:15 05/11/17 15:14 Sodium Chloride 1,000 ml @ 200 mls/hr Q5H IV 04/13/17 13:30 05/13/17 13:29 04/14/17 01:43 Ramon ([facility])Meg NP Apr 14, 2017 07:58
[2017-04-14 08:00] VITALS: BP 112/57
[2017-04-14 08:44] LABS: BASOPHILS % (AUTO) 0.7 % (0.0-2.0); LYMPHOCYTES % (AUTO) 44.9 % (20.0-45.0); MEAN CORPUSCULAR HEMOGLOBIN 30.8 PG (27.0-31.0); MEAN CORPUSCULAR HGB CONC 33.5 G/DL (32.0-36.0); MEAN CORPUSCULAR VOLUME 92 FL (80-99); MEAN PLATELET VOLUME 8.4 FL (6.5-10.1); MONOCYTES % (AUTO) 5.6 % (1.0-10.0); NEUTROPHILS % (AUTO) 39.7 % (45.0-75.0); PLATELET COUNT 202 K/UL (150-450); RED BLOOD COUNT 4.32 M/UL (4.20-5.40); RED CELL DISTRIBUTION WIDTH 11.2 % (11.6-14.8); WHITE BLOOD COUNT 7.9 K/UL (4.8-10.8)
[2017-04-14 10:17] LABS: ALANINE AMINOTRANSFERASE 211 U/L (12-78); ALBUMIN/GLOBULIN RATIO 1.3 (1.0-2.7); ANION GAP 6 mmol/L (5-15); ASPARTATE AMINO TRANSFERASE 614 U/L (15-37); CARBON DIOXIDE 29 MMOL/L (21-32); CHLORIDE 106 MMOL/L (98-107); CREATININE 0.7 MG/DL (0.55-1.30); GLOMERULAR FILTRATION RATE > 60 mL/min (>60); SODIUM 141 MMOL/L (136-145); TOTAL PROTEIN 6.2 G/DL (6.4-8.2)
[2017-04-14 10:22] LABS: CKMB 3.1 NG/ML (0.0-3.6)
--- NOTE | 2017-04-14 10:30 | Diagnostic Imaging Report ---
Indication: Abnormal liver function tests Technique: Roblero-scale and duplex images of the upper abdomen were obtained Comparison: Findings: Gallbladder is unremarkable, without stones, wall thickening, nor pericholecystic fluid. Sonographic Ruth's sign is negative. Common bile duct measures 6 mm in diameter. No intrahepatic biliary ductal dilatation. Liver demonstrates slightly coarsened echogenicity, no focal abnormality. Portal vein and hepatic veins are patent. Pancreas is unremarkable. Spleen is unremarkable. Left kidney measures 10.5 cm in length. Right kidney measures 12.6 cm length. Both kidneys demonstrate normal echogenicity. There is no hydronephrosis. No focal abnormality . Non-aneurysmal abdominal aorta . Impression: Negative for gallstones or dilated ducts Slightly coarsened hepatic echotexture, nonspecific if real, could indicate hepatocellular disease
--- NOTE | 2017-04-14 11:10 | GI Progress Note ---
Assessment/Plan Problems: (1) Shock liver ICD Codes: K72.00 - Acute and subacute hepatic failure without coma SNOMED: 422165492 (2) Elevated liver enzymes ICD Codes: R74.8 - Abnormal levels of other serum enzymes SNOMED: 448696121, 214834611 (3) Arm pain ICD Codes: M79.603 - Pain in arm, unspecified SNOMED: 070023421 (4) rhabdomyolitis Status: unchanged Status Narrative Discussed with Dr. Quiñones. Assessment/Plan elevated LFTs most likely due to shock liver 2/2 rhabdo, will monitor at this time abdominal U/S reviewed >> Negative for gallstones or dilated ducts. Slightly coarsened hepatic echotexture, nonspecific if real, could indicate hepatocellular disease. cont rhabdo mgmt symptomatic treatment at this time pain mgmt zofran prn electrolyte replacement fu labs Subjective Subjective arm pain has improved Objective Last 24 Hour Vital Signs Date Time Temp Pulse Resp B/P (MAP) Pulse Ox O2 Delivery O2 Flow Rate FiO2 04/14/17 08:00 97.5 62 20 112/57 99 Room Air 04/14/17 00:00 98.2 63 18 109/60 100 Room Air 04/13/17 20:00 98.2 62 18 124/73 100 Room Air 04/13/17 16:15 98.6 57 21 111/59 97 Room Air 04/13/17 11:34 98.2 69 19 107/60 98 Room Air Laboratory Tests Test 04/14/17 08:10 White Blood Count 7.9 K/UL (4.8-10.8) Red Blood Count 4.32 M/UL (4.20-5.40) Hemoglobin 13.3 G/DL (12.0-16.0) Hematocrit 39.8 % (37.0-47.0) Mean Corpuscular Volume 92 FL (80-99) Mean Corpuscular Hemoglobin 30.8 PG (27.0-31.0) Mean Corpuscular Hemoglobin Concent 33.5 G/DL (32.0-36.0) Red Cell Distribution Width 11.2 % (11.6-14.8) L Platelet Count 202 K/UL (150-450) Mean Platelet Volume 8.4 FL (6.5-10.1) Neutrophils (%) (Auto) 39.7 % (45.0-75.0) L Lymphocytes (%) (Auto) 44.9 % (20.0-45.0) Monocytes (%) (Auto) 5.6 % (1.0-10.0) Eosinophils (%) (Auto) 9.0 % (0.0-3.0) H Basophils (%) (Auto) 0.7 % (0.0-2.0) Sodium Level 141 MMOL/L (136-145) Potassium Level 4.0 MMOL/L (3.5-5.1) Chloride Level 106 MMOL/L (98-107) Carbon Dioxide Level 29 MMOL/L (21-32) Anion Gap 6 mmol/L (5-15) Blood Urea Nitrogen 12 mg/dL (7-18) Creatinine 0.7 MG/DL (0.55-1.30) Estimat Glomerular Filtration Rate > 60 mL/min (>60) Glucose Level 122 MG/DL (74-106) H Calcium Level 9.0 MG/DL (8.5-10.1) Total Bilirubin 0.6 MG/DL (0.2-1.0) Aspartate Amino Transf (AST/SGOT) 614 U/L (15-37) H Alanine Aminotransferase (ALT/SGPT) 211 U/L (12-78) H Alkaline Phosphatase 53 U/L (46-116) Total Creatine Kinase 55124 U/L (26-308) H Creatine Kinase MB 3.1 NG/ML (0.0-3.6) Creatine Kinase MB Relative Index 0.0 Troponin I 0.015 ng/mL (0.000-0.056) Total Protein 6.2 G/DL (6.4-8.2) L Albumin 3.5 G/DL (3.4-5.0) Globulin 2.7 g/dL Albumin/Globulin Ratio 1.3 (1.0-2.7) Height (Feet): 5 Height (Inches): 7.00 Weight (Pounds): 138 General Appearance: WD/WN, no apparent distress, alert Cardiovascular: normal rate Respiratory/Chest: normal breath sounds, no respiratory distress Abdominal Exam: normal bowel sounds, non tender, soft Extremities: normal range of motion, non-tender Michelle Wick N.PJoselyn Apr 14, 2017 11:10
[2017-04-14 12:00] VITALS: BP 119/57
[2017-04-14 16:00] VITALS: BP 120/72
--- NOTE | 2017-04-14 16:32 | Internal Med Progress Note ---
Subjective Physician Name Indra Davis Attending Physician Indra Davis MD Current Medications Medications (Trade) Dose Ordered Sig/Marisol Route PRN Reason Start Time Stop Time Status Last Admin Dose Admin Acetaminophen (Tylenol) 650 mg Q4H PRN ORAL Mild Pain/Temp > 100.5 04/11/17 15:15 05/11/17 15:14 Diphenhydramine HCl (Benadryl) 25 mg Q6H PRN IVP Itching 04/11/17 17:15 05/11/17 17:14 Morphine Sulfate (Morphine Sulfate) 2 mg Q4H PRN IVP For Pain 4-10 04/11/17 19:45 04/18/17 19:44 04/14/17 00:32 Ondansetron HCl (Zofran) 4 mg Q4H PRN IVP Nausea & Vomiting 04/11/17 15:15 05/11/17 15:14 Sodium Chloride 1,000 ml @ 200 mls/hr Q5H IV 04/13/17 13:30 05/13/17 13:29 04/14/17 13:40 Allergies: Coded Allergies: HYDROCODONE (Verified Allergy, Mild, Itching, 04/11/17) PHENOBARBITAL (Verified Allergy, Unknown, rash, 04/11/17) 25 years ago, rash Subjective awake, alert, responsive, less muscle ache Objective Last Vital Signs Date Time Temp Pulse Resp B/P (MAP) Pulse Ox O2 Delivery O2 Flow Rate FiO2 04/14/17 12:00 98.1 70 119/57 Room Air 04/14/17 08:00 20 99 Laboratory Tests Test 04/14/17 08:10 White Blood Count 7.9 K/UL (4.8-10.8) Red Blood Count 4.32 M/UL (4.20-5.40) Hemoglobin 13.3 G/DL (12.0-16.0) Hematocrit 39.8 % (37.0-47.0) Mean Corpuscular Volume 92 FL (80-99) Mean Corpuscular Hemoglobin 30.8 PG (27.0-31.0) Mean Corpuscular Hemoglobin Concent 33.5 G/DL (32.0-36.0) Red Cell Distribution Width 11.2 % (11.6-14.8) L Platelet Count 202 K/UL (150-450) Mean Platelet Volume 8.4 FL (6.5-10.1) Neutrophils (%) (Auto) 39.7 % (45.0-75.0) L Lymphocytes (%) (Auto) 44.9 % (20.0-45.0) Monocytes (%) (Auto) 5.6 % (1.0-10.0) Eosinophils (%) (Auto) 9.0 % (0.0-3.0) H Basophils (%) (Auto) 0.7 % (0.0-2.0) Sodium Level 141 MMOL/L (136-145) Potassium Level 4.0 MMOL/L (3.5-5.1) Chloride Level 106 MMOL/L (98-107) Carbon Dioxide Level 29 MMOL/L (21-32) Anion Gap 6 mmol/L (5-15) Blood Urea Nitrogen 12 mg/dL (7-18) Creatinine 0.7 MG/DL (0.55-1.30) Estimat Glomerular Filtration Rate > 60 mL/min (>60) Glucose Level 122 MG/DL (74-106) H Calcium Level 9.0 MG/DL (8.5-10.1) Total Bilirubin 0.6 MG/DL (0.2-1.0) Aspartate Amino Transf (AST/SGOT) 614 U/L (15-37) H Alanine Aminotransferase (ALT/SGPT) 211 U/L (12-78) H Alkaline Phosphatase 53 U/L (46-116) Total Creatine Kinase 28917 U/L (26-308) H Creatine Kinase MB 3.1 NG/ML (0.0-3.6) Creatine Kinase MB Relative Index 0.0 Troponin I 0.015 ng/mL (0.000-0.056) Total Protein 6.2 G/DL (6.4-8.2) L Albumin 3.5 G/DL (3.4-5.0) Globulin 2.7 g/dL Albumin/Globulin Ratio 1.3 (1.0-2.7) Intake and Output 04/14/17 04/15/17 19:00 07:00 Intake Total 2400 ml Balance 2400 ml Intake Oral 1000 ml IV Total 1400 ml # Voids 4 Objective General: No acute distress, awake and alert HEENT: NCAT, sclera anicteric, PERRL, EOMI. Neck: Supple, no significant jugular venous distention, Lungs: Good inspiratory effort, no accessory muscle use, clear to auscultation bilaterally, no Wheeze or Rales. Heart: Regular rate and rhythm, normal S1/S2, no murmurs/gallops Abdomen: soft, nontender, nondistended. Normoactive bowel sounds. / Rectal: Refused and deferred. Extremities: No Cyanosis , clubbing or edema. Neuro: A&O x 3, Able to move all extremities Skin: warm, no rashes or lesions Psych: Normal mood and affect Assessment/Plan Assessment/Plan (1) Rhabdomyolysis (2) Arm pain (3) Elevated liver enzymes / transaminitis (4) history of melanoma s/p resection. plan: discuss with patient extensively with regard to care would be provided IVF @ 200 cc/hr monitor labs discuss with Indra Anne MD Apr 14, 2017 16:32
--- NOTE | 2017-04-14 18:00 | Progress Note ---
DATE: 04/14/2017 SUBJECTIVE: The patient is doing well. She had no significant issues. Her pain is well controlled. OBJECTIVE: Examination shows bilateral upper extremity full range of motion. Minimal tenderness to palpation over the anterior and posterior compartments of the humerus. Neurovascular exam is normal. ASSESSMENT: Bilateral upper extremity compartment syndrome secondary to rhabdomyolysis. DISCUSSION: At this point, she is doing relatively well. I would like her to continue with the medical management for her underlying rhabdomyolysis with IV hydration. In terms of her upper extremity issues going forward, she can follow up as outpatient if needed, but at this point, I do not know if there would be significant orthopedic issues that need to be addressed going forward. Caleb Person M.D. DR: NICOLE JOB#: [id number] CC:
[2017-04-14 21:00] VITALS: BP 132/80
[2017-04-14] MEDS ORDERED: 1/2 NS 1000ml IV ONE (21:44)
[2017-04-15] VITALS: BP 125/72
[2017-04-15] MEDS: Morphine Sulfate 2mg/ml Inj IVP PRN ×2 (01:28→22:57)
[2017-04-15 07:20] LABS: BASOPHILS % (AUTO) 0.7 % (0.0-2.0); LYMPHOCYTES % (AUTO) 43.3 % (20.0-45.0); MEAN CORPUSCULAR HEMOGLOBIN 31.2 PG (27.0-31.0); MEAN CORPUSCULAR HGB CONC 34.1 G/DL (32.0-36.0); MEAN CORPUSCULAR VOLUME 92 FL (80-99); MEAN PLATELET VOLUME 8.4 FL (6.5-10.1); MONOCYTES % (AUTO) 6.3 % (1.0-10.0); NEUTROPHILS % (AUTO) 42.7 % (45.0-75.0); PLATELET COUNT 205 K/UL (150-450); RED BLOOD COUNT 4.13 M/UL (4.20-5.40); RED CELL DISTRIBUTION WIDTH 11.2 % (11.6-14.8); WHITE BLOOD COUNT 8.4 K/UL (4.8-10.8)
--- NOTE | 2017-04-15 07:56 | Pulmonology Progress Note ---
Assessment/Plan Assessment/Plan ASSESSMENT acute Rhabdo bilateral arm pain elevated LFT due to rhabdo vs shock liver elevated TSH PLAN OF CARE [place] floor aggressive IVF CK, LFT trending down CK with trend down but LFT rising up abdominal US - Negative for gallstones or dilated ducts Slightly coarsened hepatic echotexture, nonspecific if real, could indicate hepatocellular disease hepatitis panel pending nephro follows elevated LFT likely due to rhabdo GI follows ortho surgery eval noted Pain management Venous Duplex BUE negative Renal parameters stable renal US neg elevated TSH check free T 4 case discussed and evaluated by supervising physician Subjective Allergies: Coded Allergies: HYDROCODONE (Verified Allergy, Mild, Itching, 04/11/17) PHENOBARBITAL (Verified Allergy, Unknown, rash, 04/11/17) 25 years ago, rash Subjective denies abdominal pain, CK and LFT with trend down afebrile, no leukocytosis anxious pain in arm improving Objective Last 24 Hour Vital Signs Date Time Temp Pulse Resp B/P (MAP) Pulse Ox O2 Delivery O2 Flow Rate FiO2 04/15/17 01:59 97.2 04/15/17 00:00 97.2 66 20 125/72 100 Room Air 66 04/14/17 21:00 98.1 68 20 132/80 100 Room Air 68 04/14/17 16:00 98.2 68 17 120/72 97 04/14/17 12:00 98.1 70 119/57 Room Air 04/14/17 08:00 97.5 62 20 112/57 99 Room Air Objective General Appearance: WD/WN, no acute distress HEENT: normocephalic, atraumatic, anicteric, mucous membranes moist, PERRL Respiratory/Chest: chest wall non-tender, lungs clear, no respiratory distress , no accessory muscle use Cardiovascular: normal peripheral pulses, normal rate, regular rhythm, no JVD Abdomen: normal bowel sounds, soft, non tender, non distended Genitourinary: normal external genitalia Extremities: no edema, pedal pulses normal 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, no motor/sensory deficits, alert, oriented x 3, responsive Lymphatic: no neck adenopathy Musculoskeletal: normal muscle bulk Laboratory Tests 04/14/17 08:10: White Blood Count 7.9, Red Blood Count 4.32, Hemoglobin 13.3, Hematocrit 39.8, Mean Corpuscular Volume 92, Mean Corpuscular Hemoglobin 30.8, Mean Corpuscular Hemoglobin Concent 33.5, Red Cell Distribution Width 11.2L, Platelet Count 202, Mean Platelet Volume 8.4, Neutrophils (%) (Auto) 39.7L, Lymphocytes (%) (Auto) 44.9, Monocytes (%) (Auto) 5.6, Eosinophils (%) (Auto) 9.0H, Basophils (%) (Auto ) 0.7, Sodium Level 141, Potassium Level 4.0, Chloride Level 106, Carbon Dioxide Level 29, Anion Gap 6, Blood Urea Nitrogen 12, Creatinine 0.7, Estimat Glomerular Filtration Rate > 60, Glucose Level 122H, Calcium Level 9.0, Total Bilirubin 0.6, Aspartate Amino Transf (AST/SGOT) 614H, Alanine Aminotransferase (ALT/SGPT) 211H, Alkaline Phosphatase 53, Total Creatine Kinase 67413L, Creatine Kinase MB 3.1, Creatine Kinase MB Relative Index 0.0, Troponin I 0.015 , Total Protein 6.2L, Albumin 3.5, Globulin 2.7, Albumin/Globulin Ratio 1.3 04/15/17 04:40: White Blood Count 8.4, Red Blood Count 4.13L, Hemoglobin 12.9, Hematocrit 37.8, Mean Corpuscular Volume 92, Mean Corpuscular Hemoglobin 31.2H, Mean Corpuscular Hemoglobin Concent 34.1, Red Cell Distribution Width 11.2L, Platelet Count 205, Mean Platelet Volume 8.4, Neutrophils (%) (Auto) 42.7L, Lymphocytes (%) (Auto) 43.3, Monocytes (%) (Auto) 6.3, Eosinophils (%) (Auto) 7.0H, Basophils (%) (Auto ) 0.7, Sodium Level [Pending], Potassium Level [Pending], Chloride Level [ Pending], Carbon Dioxide Level [Pending], Blood Urea Nitrogen [Pending], Creatinine [Pending], Estimat Glomerular Filtration Rate [Pending], Glucose Level [Pending], Calcium Level [Pending], Total Bilirubin [Pending], Aspartate Amino Transf (AST/SGOT) [Pending], Alanine Aminotransferase (ALT/SGPT) [Pending] , Alkaline Phosphatase [Pending], Total Creatine Kinase [Pending], Total Protein [Pending], Albumin [Pending], Globulin [Pending], Magnesium Level [ Pending], Thyroid Stimulating Hormone (TSH) [Pending], Hepatitis A IgM Antibody [Pending], Hepatitis B Surface Antigen [Pending], Hepatitis B Core IgM Antibody [Pending], Hepatitis C Antibody [Pending] Current Medications Medications (Trade) Dose Ordered Sig/Marisol Route PRN Reason Start Time Stop Time Status Last Admin Dose Admin Acetaminophen (Tylenol) 650 mg Q4H PRN ORAL Mild Pain/Temp > 100.5 04/11/17 15:15 05/11/17 15:14 Diphenhydramine HCl (Benadryl) 25 mg Q6H PRN IVP Itching 04/11/17 17:15 05/11/17 17:14 Morphine Sulfate (Morphine Sulfate) 2 mg Q4H PRN IVP For Pain 4-10 04/11/17 19:45 04/18/17 19:44 04/15/17 01:28 Ondansetron HCl (Zofran) 4 mg Q4H PRN IVP Nausea & Vomiting 04/11/17 15:15 05/11/17 15:14 Sodium Chloride 1,000 ml @ 200 mls/hr Q5H IV 04/13/17 13:30 05/13/17 13:29 04/15/17 04:46 Ramon SnowMeg crespo NP Apr 15, 2017 07:56
[2017-04-15 08:36] VITALS: BP 106/64
[2017-04-15] MEDS ORDERED: 1/2 NS 1000ml IV ONE ×3 (09:21→16:34)
[2017-04-15 09:50] LABS: ALANINE AMINOTRANSFERASE 192 U/L (12-78); ALBUMIN/GLOBULIN RATIO 1.3 (1.0-2.7); ANION GAP 7 mmol/L (5-15); ASPARTATE AMINO TRANSFERASE 459 U/L (15-37); CARBON DIOXIDE 27 MMOL/L (21-32); CHLORIDE 106 MMOL/L (98-107); CREATININE 0.8 MG/DL (0.55-1.30); GLOMERULAR FILTRATION RATE > 60 mL/min (>60); POTASSIUM 4.2 MMOL/L (3.5-5.1); SODIUM 140 MMOL/L (136-145); TOTAL PROTEIN 6.1 G/DL (6.4-8.2)
[2017-04-15 10:26] LABS: MAGNESIUM 1.5 MG/DL (1.5-2.4); THYROID STIMULATING HORMONE 3.805 uiU/mL (0.360-3.740)
[2017-04-15 11:22] VITALS: BP 109/57
--- NOTE | 2017-04-15 11:30 | Internal Med Progress Note ---
Subjective Date of Service: Apr 15, 2017 Physician Name Driss Worthington Attending Physician Indra Davis MD Current Medications Medications (Trade) Dose Ordered Sig/Marisol Route PRN Reason Start Time Stop Time Status Last Admin Dose Admin Acetaminophen (Tylenol) 650 mg Q4H PRN ORAL Mild Pain/Temp > 100.5 04/11/17 15:15 05/11/17 15:14 Diphenhydramine HCl (Benadryl) 25 mg Q6H PRN IVP Itching 04/11/17 17:15 05/11/17 17:14 Morphine Sulfate (Morphine Sulfate) 2 mg Q4H PRN IVP For Pain 4-10 04/11/17 19:45 04/18/17 19:44 04/15/17 01:28 Ondansetron HCl (Zofran) 4 mg Q4H PRN IVP Nausea & Vomiting 04/11/17 15:15 05/11/17 15:14 Sodium Chloride 1,000 ml @ 200 mls/hr Q5H IV 04/13/17 13:30 05/13/17 13:29 04/15/17 09:54 Allergies: Coded Allergies: HYDROCODONE (Verified Allergy, Mild, Itching, 04/11/17) PHENOBARBITAL (Verified Allergy, Unknown, rash, 04/11/17) 25 years ago, rash ROS Limited/Unobtainable: No Constitutional: Reports: no symptoms HEENT: Reports: no symptoms Cardiovascular: Reports: no symptoms Respiratory: Reports: no symptoms Gastrointestinal/Abdominal: Reports: no symptoms Genitourinary: Reports: no symptoms Neurologic/Psychiatric: Reports: no symptoms Subjective 32 YO F with bilat upper arm pain, now rhabdomyolysis. Cover for Int Med - Dr Davis Objective Last Vital Signs Date Time Temp Pulse Resp B/P (MAP) Pulse Ox O2 Delivery O2 Flow Rate FiO2 04/15/17 11:22 98.0 62 18 109/57 97 Room Air Laboratory Tests Test 04/15/17 04:40 White Blood Count 8.4 K/UL (4.8-10.8) Red Blood Count 4.13 M/UL (4.20-5.40) L Hemoglobin 12.9 G/DL (12.0-16.0) Hematocrit 37.8 % (37.0-47.0) Mean Corpuscular Volume 92 FL (80-99) Mean Corpuscular Hemoglobin 31.2 PG (27.0-31.0) H Mean Corpuscular Hemoglobin Concent 34.1 G/DL (32.0-36.0) Red Cell Distribution Width 11.2 % (11.6-14.8) L Platelet Count 205 K/UL (150-450) Mean Platelet Volume 8.4 FL (6.5-10.1) Neutrophils (%) (Auto) 42.7 % (45.0-75.0) L Lymphocytes (%) (Auto) 43.3 % (20.0-45.0) Monocytes (%) (Auto) 6.3 % (1.0-10.0) Eosinophils (%) (Auto) 7.0 % (0.0-3.0) H Basophils (%) (Auto) 0.7 % (0.0-2.0) Sodium Level 140 MMOL/L (136-145) Potassium Level 4.2 MMOL/L (3.5-5.1) Chloride Level 106 MMOL/L (98-107) Carbon Dioxide Level 27 MMOL/L (21-32) Anion Gap 7 mmol/L (5-15) Blood Urea Nitrogen 15 mg/dL (7-18) Creatinine 0.8 MG/DL (0.55-1.30) Estimat Glomerular Filtration Rate > 60 mL/min (>60) Glucose Level 83 MG/DL (74-106) Calcium Level 9.0 MG/DL (8.5-10.1) Magnesium Level 1.5 MG/DL (1.5-2.4) Total Bilirubin 0.4 MG/DL (0.2-1.0) Aspartate Amino Transf (AST/SGOT) 459 U/L (15-37) H Alanine Aminotransferase (ALT/SGPT) 192 U/L (12-78) H Alkaline Phosphatase 50 U/L (46-116) Total Creatine Kinase 60873 U/L (26-308) H Total Protein 6.1 G/DL (6.4-8.2) L Albumin 3.4 G/DL (3.4-5.0) Globulin 2.7 g/dL Albumin/Globulin Ratio 1.3 (1.0-2.7) Thyroid Stimulating Hormone (TSH) 3.805 uiU/mL (0.360-3.740) Hepatitis A IgM Antibody Pending Hepatitis B Surface Antigen Pending Hepatitis B Core IgM Antibody Pending Hepatitis C Antibody Pending Intake and Output 04/15/17 04/16/17 19:00 07:00 Intake Total 600 ml Balance 600 ml IV Total 600 ml Objective General Appearance: WD/WN, no apparent distress, alert EENT: PERRL/EOMI, normal ENT inspection, TMs normal Neck: non-tender, normal alignment, supple Cardiovascular: normal peripheral pulses, normal rate, regular rhythm, no gallop/murmur, no JVD Respiratory/Chest: chest wall non-tender, lungs clear, normal breath sounds, no respiratory distress, no accessory muscle use Abdomen: normal bowel sounds, non tender, soft, no organomegaly, no mass Extremities: normal range of motion, non-tender 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 See ortho consult. (2) Arm pain Assessment & Plan: due to rhabdomyolysis (3) Elevated liver enzymes Assessment & Plan: Await GI consult. Abdominal ultrasound pending DRISS WORTHINGTON Apr 15, 2017 11:29
[2017-04-15 16:01] VITALS: BP 110/59
--- NOTE | 2017-04-15 17:29 | General Progress Note ---
Assessment/Plan Assessment/Plan Assessment - Rhabdomyolysis - abnormal LFT, likely false positive Recommendations - IVF - Rest - follow LFT - f/u hepatitis serologies Subjective Allergies: Coded Allergies: HYDROCODONE (Verified Allergy, Mild, Itching, 04/11/17) PHENOBARBITAL (Verified Allergy, Unknown, rash, 04/11/17) 25 years ago, rash Subjective Feels better arm getting better d/w patient re labs Objective Last 24 Hour Vital Signs Date Time Temp Pulse Resp B/P (MAP) Pulse Ox O2 Delivery O2 Flow Rate FiO2 04/15/17 16:01 98.2 65 19 110/59 100 Room Air 04/15/17 11:22 98.0 62 18 109/57 97 Room Air 04/15/17 08:36 97.9 70 19 106/64 98 Room Air 04/15/17 01:59 97.2 04/15/17 00:00 97.2 66 20 125/72 100 Room Air 66 04/14/17 21:00 98.1 68 20 132/80 100 Room Air 68 Intake and Output 04/15/17 04/16/17 19:00 07:00 Intake Total 1400 ml Balance 1400 ml IV Total 1400 ml Laboratory Tests 04/15/17 04:40: White Blood Count 8.4, Red Blood Count 4.13L, Hemoglobin 12.9, Hematocrit 37.8, Mean Corpuscular Volume 92, Mean Corpuscular Hemoglobin 31.2H, Mean Corpuscular Hemoglobin Concent 34.1, Red Cell Distribution Width 11.2L, Platelet Count 205, Mean Platelet Volume 8.4, Neutrophils (%) (Auto) 42.7L, Lymphocytes (%) (Auto) 43.3, Monocytes (%) (Auto) 6.3, Eosinophils (%) (Auto) 7.0H, Basophils (%) (Auto ) 0.7, Sodium Level 140, Potassium Level 4.2, Chloride Level 106, Carbon Dioxide Level 27, Anion Gap 7, Blood Urea Nitrogen 15, Creatinine 0.8, Estimat Glomerular Filtration Rate > 60, Glucose Level 83, Calcium Level 9.0, Magnesium Level 1.5, Total Bilirubin 0.4, Aspartate Amino Transf (AST/SGOT) 459H, Alanine Aminotransferase (ALT/SGPT) 192H, Alkaline Phosphatase 50, Total Creatine Kinase 62907Q, Total Protein 6.1L, Albumin 3.4, Globulin 2.7, Albumin/Globulin Ratio 1.3, Thyroid Stimulating Hormone (TSH) 3.805H, Free Thyroxine 1.22, Hepatitis A IgM Antibody [Pending], Hepatitis B Surface Antigen [Pending], Hepatitis B Core IgM Antibody [Pending], Hepatitis C Antibody [Pending] Height (Feet): 5 Height (Inches): 7.00 Weight (Pounds): 138 Objective WDWN NCAT supple CTA RRR Soft NT ND no edema nonfocal JULY SOW Apr 15, 2017 17:29
[2017-04-15 20:00] VITALS: BP 107/52
[2017-04-16 07:58] LABS: BASOPHILS % (AUTO) 0.7 % (0.0-2.0); EOSINOPHILS % (AUTO) 7.6 % (0.0-3.0); LYMPHOCYTES % (AUTO) 45.7 % (20.0-45.0); MEAN CORPUSCULAR HGB CONC 34.8 G/DL (32.0-36.0); MEAN CORPUSCULAR VOLUME 92 FL (80-99); NEUTROPHILS % (AUTO) 38.9 % (45.0-75.0); PLATELET COUNT 202 K/UL (150-450); RED BLOOD COUNT 4.09 M/UL (4.20-5.40); RED CELL DISTRIBUTION WIDTH 11.5 % (11.6-14.8); WHITE BLOOD COUNT 7.9 K/UL (4.8-10.8)
--- NOTE | 2017-04-16 08:08 | Pulmonology Progress Note ---
Assessment/Plan Assessment/Plan ASSESSMENT acute Rhabdo bilateral arm pain elevated LFT duet o rhabdo vs shock liver subclinical hypothyroidism -elevated TSH with normal free T 4- hypo Mg PLAN OF CARE [facility] floor aggressive IVF CK, LFT trending down CK with trend down -5317 LFT still elevated ( no labs for today) abdominal US - Negative for gallstones or dilated ducts Slightly coarsened hepatic echotexture, nonspecific if real, could indicate hepatocellular disease hepatitis panel pending r nephro follows elevated LFT likely due to rhabdo GI follows replace Mg, check Mg in am, GGTP WNL ortho surgery eval noted Pain management Venous Duplex BUE negative Renal parameters stable renal US neg elevated TSH , normal free T4, check TFT in 1-2 months anticipate dc in 1-2 days patient wants to be dc on Monday, had job interview on Monday if CK with furtehr trend down, dc plan for tomorrow case discussed and evaluated by supervising physician Subjective Allergies: Coded Allergies: HYDROCODONE (Verified Allergy, Mild, Itching, 04/11/17) PHENOBARBITAL (Verified Allergy, Unknown, rash, 04/11/17) 25 years ago, rash Subjective denies abdominal pain, CK with trend down afebrile, no leukocytosis pain in arm improved Mg-1.6 Objective Last 24 Hour Vital Signs Date Time Temp Pulse Resp B/P (MAP) Pulse Ox O2 Delivery O2 Flow Rate FiO2 04/15/17 23:27 97.7 04/15/17 20:00 97.7 68 21 107/52 96 Room Air 04/15/17 16:01 98.2 65 19 110/59 100 Room Air 04/15/17 11:22 98.0 62 18 109/57 97 Room Air 04/15/17 08:36 97.9 70 19 106/64 98 Room Air Objective General Appearance: WD/WN, no acute distress HEENT: normocephalic, atraumatic, anicteric, mucous membranes moist, PERRL Respiratory/Chest: chest wall non-tender, lungs clear, no respiratory distress , no accessory muscle use Cardiovascular: normal peripheral pulses, normal rate, regular rhythm, no JVD Abdomen: normal bowel sounds, soft, non tender, non distended Genitourinary: normal external genitalia Extremities: no edema, pedal pulses normal 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, no motor/sensory deficits, alert, oriented x 3, responsive Lymphatic: no neck adenopathy Musculoskeletal: normal muscle bulk Laboratory Tests 04/16/17 05:45: White Blood Count [Pending], Red Blood Count [Pending], Hemoglobin [Pending], Hematocrit [Pending], Mean Corpuscular Volume [Pending], Mean Corpuscular Hemoglobin [Pending], Mean Corpuscular Hemoglobin Concent [Pending], Red Cell Distribution Width [Pending], Platelet Count [Pending], Mean Platelet Volume [ Pending], Neutrophils (%) (Auto) [Pending], Lymphocytes (%) (Auto) [Pending], Monocytes (%) (Auto) [Pending], Eosinophils (%) (Auto) [Pending], Basophils (%) (Auto) [Pending], Sodium Level [Pending], Potassium Level [Pending], Chloride Level [Pending], Carbon Dioxide Level [Pending], Blood Urea Nitrogen [Pending], Creatinine [Pending], Estimat Glomerular Filtration Rate [Pending], Glucose Level [Pending], Calcium Level [Pending], Total Creatine Kinase [Pending] Current Medications Medications (Trade) Dose Ordered Sig/Marisol Route PRN Reason Start Time Stop Time Status Last Admin Dose Admin Acetaminophen (Tylenol) 650 mg Q4H PRN ORAL Mild Pain/Temp > 100.5 04/11/17 15:15 05/11/17 15:14 Diphenhydramine HCl (Benadryl) 25 mg Q6H PRN IVP Itching 04/11/17 17:15 05/11/17 17:14 Morphine Sulfate (Morphine Sulfate) 2 mg Q4H PRN IVP For Pain 4-10 04/11/17 19:45 04/18/17 19:44 04/15/17 22:57 Ondansetron HCl (Zofran) 4 mg Q4H PRN IVP Nausea & Vomiting 04/11/17 15:15 05/11/17 15:14 Sodium Chloride 1,000 ml @ 200 mls/hr Q5H IV 04/13/17 13:30 05/13/17 13:29 04/16/17 06:20 Meg Navarro NP (Vanchtein) Apr 16, 2017 08:08
[2017-04-16 08:12] VITALS: BP 101/54
[2017-04-16] MEDS ORDERED: 1/2 NS 1000ml IV ONE ×2 (08:54→17:25)
[2017-04-16 09:24] LABS: ANION GAP 9 mmol/L (5-15); CALCIUM 8.9 MG/DL (8.5-10.1); CARBON DIOXIDE 25 MMOL/L (21-32); CHLORIDE 106 MMOL/L (98-107); CREATININE 0.8 MG/DL (0.55-1.30); GLOMERULAR FILTRATION RATE > 60 mL/min (>60); SODIUM 140 MMOL/L (136-145)
[2017-04-16 11:22] VITALS: BP 146/72
[2017-04-16] MEDS: Morphine Sulfate 2mg/ml Inj IVP PRN (12:27)
--- NOTE | 2017-04-16 16:10 | Internal Med Progress Note ---
Subjective Date of Service: Apr 16, 2017 Physician Name Driss Worthington Attending Physician Indra Davis MD Current Medications Medications (Trade) Dose Ordered Sig/Marisol Route PRN Reason Start Time Stop Time Status Last Admin Dose Admin Acetaminophen (Tylenol) 650 mg Q4H PRN ORAL Mild Pain/Temp > 100.5 04/11/17 15:15 05/11/17 15:14 Diphenhydramine HCl (Benadryl) 25 mg Q6H PRN IVP Itching 04/11/17 17:15 05/11/17 17:14 Morphine Sulfate (Morphine Sulfate) 2 mg Q4H PRN IVP For Pain 4-10 04/11/17 19:45 04/18/17 19:44 04/16/17 12:27 Ondansetron HCl (Zofran) 4 mg Q4H PRN IVP Nausea & Vomiting 04/11/17 15:15 05/11/17 15:14 Sodium Chloride 1,000 ml @ 200 mls/hr Q5H IV 04/13/17 13:30 05/13/17 13:29 04/16/17 11:17 Allergies: Coded Allergies: HYDROCODONE (Verified Allergy, Mild, Itching, 04/11/17) PHENOBARBITAL (Verified Allergy, Unknown, rash, 04/11/17) 25 years ago, rash ROS Limited/Unobtainable: No Constitutional: Reports: no symptoms HEENT: Reports: no symptoms Cardiovascular: Reports: no symptoms Respiratory: Reports: no symptoms Gastrointestinal/Abdominal: Reports: no symptoms Genitourinary: Reports: no symptoms Neurologic/Psychiatric: Reports: no symptoms Subjective 32 YO F with bilat upper arm pain, now rhabdomyolysis. Cover for Int Med - Dr Davis. C/O Back pain Objective Last Vital Signs Date Time Temp Pulse Resp B/P (MAP) Pulse Ox O2 Delivery O2 Flow Rate FiO2 04/16/17 12:57 97.9 04/16/17 11:22 78 18 146/72 100 Room Air Laboratory Tests Test 04/16/17 05:45 White Blood Count 7.9 K/UL (4.8-10.8) Red Blood Count 4.09 M/UL (4.20-5.40) L Hemoglobin 13.1 G/DL (12.0-16.0) Hematocrit 37.7 % (37.0-47.0) Mean Corpuscular Volume 92 FL (80-99) Mean Corpuscular Hemoglobin 32.0 PG (27.0-31.0) H Mean Corpuscular Hemoglobin Concent 34.8 G/DL (32.0-36.0) Red Cell Distribution Width 11.5 % (11.6-14.8) L Platelet Count 202 K/UL (150-450) Mean Platelet Volume 8.0 FL (6.5-10.1) Neutrophils (%) (Auto) 38.9 % (45.0-75.0) L Lymphocytes (%) (Auto) 45.7 % (20.0-45.0) H Monocytes (%) (Auto) 7.0 % (1.0-10.0) Eosinophils (%) (Auto) 7.6 % (0.0-3.0) H Basophils (%) (Auto) 0.7 % (0.0-2.0) Sodium Level 140 MMOL/L (136-145) Potassium Level 4.0 MMOL/L (3.5-5.1) Chloride Level 106 MMOL/L (98-107) Carbon Dioxide Level 25 MMOL/L (21-32) Anion Gap 9 mmol/L (5-15) Blood Urea Nitrogen 16 mg/dL (7-18) Creatinine 0.8 MG/DL (0.55-1.30) Estimat Glomerular Filtration Rate > 60 mL/min (>60) Glucose Level 87 MG/DL (74-106) Calcium Level 8.9 MG/DL (8.5-10.1) Magnesium Level 1.6 MG/DL (1.8-2.4) L Gamma Glutamyl Transpeptidase 15 U/L (5-85) Total Creatine Kinase 5317 U/L (26-308) H Intake and Output 04/16/17 04/17/17 19:00 07:00 Intake Total 1380 ml Balance 1380 ml IV Total 1380 ml Objective General Appearance: WD/WN, no apparent distress, alert EENT: PERRL/EOMI, normal ENT inspection, TMs normal Neck: non-tender, normal alignment, supple Cardiovascular: normal peripheral pulses, normal rate, regular rhythm, no gallop/murmur, no JVD Respiratory/Chest: chest wall non-tender, lungs clear, normal breath sounds, no respiratory distress, no accessory muscle use Abdomen: normal bowel sounds, non tender, soft, no organomegaly, no mass Extremities: normal range of motion, non-tender 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 See ortho consult. (2) Arm pain Assessment & Plan: due to rhabdomyolysis (3) Elevated liver enzymes Assessment & Plan: Await GI consult. Abdominal ultrasound pending (4) Lumbar pain Assessment & Plan: Lumbar spine series. Naprosyn and flexeril prn Status: progressing DRISS WORTHINGTON Apr 16, 2017 16:10
[2017-04-16] MEDS ORDERED: Cyclobenzaprine 10mg Tab ORAL PRN (17:00)
[2017-04-16] MEDS ORDERED: Tubing IV Secondary IV ONE (17:25)
[2017-04-16] MEDS ORDERED: Naproxen 500mg tab ORAL PRN (18:00)
--- NOTE | 2017-04-16 19:15 | General Progress Note ---
Assessment/Plan Assessment/Plan Assessment - Rhabdomyolysis - abnormal LFT, likely false positive Recommendations - IVF - Rest - follow LFT - f/u hepatitis serologies --> negative Subjective Allergies: Coded Allergies: HYDROCODONE (Verified Allergy, Mild, Itching, 04/11/17) PHENOBARBITAL (Verified Allergy, Unknown, rash, 04/11/17) 25 years ago, rash Subjective Feels better arm getting better d/w patient re labs getting IVF Objective Last 24 Hour Vital Signs Date Time Temp Pulse Resp B/P (MAP) Pulse Ox O2 Delivery O2 Flow Rate FiO2 04/16/17 12:57 97.9 04/16/17 11:22 97.9 78 18 146/72 100 Room Air 04/16/17 08:12 97.9 62 19 101/54 99 Room Air 04/15/17 20:00 97.7 68 21 107/52 96 Room Air Intake and Output 04/16/17 04/17/17 19:00 07:00 Intake Total 2000 ml Output Total 600 ml Balance 1400 ml Intake Oral 620 ml IV Total 1380 ml Output Urine Total 600 ml Laboratory Tests 04/16/17 05:45: White Blood Count 7.9, Red Blood Count 4.09L, Hemoglobin 13.1, Hematocrit 37.7, Mean Corpuscular Volume 92, Mean Corpuscular Hemoglobin 32.0H, Mean Corpuscular Hemoglobin Concent 34.8, Red Cell Distribution Width 11.5L, Platelet Count 202, Mean Platelet Volume 8.0, Neutrophils (%) (Auto) 38.9L, Lymphocytes (%) (Auto) 45.7H, Monocytes (%) (Auto) 7.0, Eosinophils (%) (Auto) 7.6H, Basophils (%) ( Auto) 0.7, Sodium Level 140, Potassium Level 4.0, Chloride Level 106, Carbon Dioxide Level 25, Anion Gap 9, Blood Urea Nitrogen 16, Creatinine 0.8, Estimat Glomerular Filtration Rate > 60, Glucose Level 87, Calcium Level 8.9, Magnesium Level 1.6L, Gamma Glutamyl Transpeptidase 15, Total Creatine Kinase 5317H Height (Feet): 5 Height (Inches): 7.00 Weight (Pounds): 138 Objective WDWN NCAT supple CTA RRR Soft NT ND no edema nonfocal JULY SOW Apr 16, 2017 19:15
[2017-04-16 20:00] VITALS: BP 103/72
[2017-04-16 23:09] VITALS: BP 112/64
[2017-04-17 07:55] LABS: BASOPHILS % (AUTO) 0.9 % (0.0-2.0); EOSINOPHILS % (AUTO) 8.2 % (0.0-3.0); LYMPHOCYTES % (AUTO) 44.9 % (20.0-45.0); MEAN CORPUSCULAR HEMOGLOBIN 31.6 PG (27.0-31.0); MEAN CORPUSCULAR HGB CONC 34.2 G/DL (32.0-36.0); MEAN CORPUSCULAR VOLUME 92 FL (80-99); MEAN PLATELET VOLUME 8.3 FL (6.5-10.1); MONOCYTES % (AUTO) 7.1 % (1.0-10.0); NEUTROPHILS % (AUTO) 38.8 % (45.0-75.0); PLATELET COUNT 188 K/UL (150-450); RED BLOOD COUNT 3.95 M/UL (4.20-5.40); RED CELL DISTRIBUTION WIDTH 11.3 % (11.6-14.8); WHITE BLOOD COUNT 8.4 K/UL (4.8-10.8)
[2017-04-17 08:00] VITALS: BP 106/62
[2017-04-17 08:11] LABS: ALANINE AMINOTRANSFERASE 137 U/L (12-78); ALBUMIN/GLOBULIN RATIO 1.1 (1.0-2.7); ANION GAP 6 mmol/L (5-15); ASPARTATE AMINO TRANSFERASE 162 U/L (15-37); CALCIUM 8.6 MG/DL (8.5-10.1); CARBON DIOXIDE 27 MMOL/L (21-32); CHLORIDE 106 MMOL/L (98-107); CREATININE 0.7 MG/DL (0.55-1.30); GLOMERULAR FILTRATION RATE > 60 mL/min (>60); MAGNESIUM 1.6 MG/DL (1.8-2.4); POTASSIUM 3.9 MMOL/L (3.5-5.1); SODIUM 139 MMOL/L (136-145); TOTAL PROTEIN 6.2 G/DL (6.4-8.2)
--- NOTE | 2017-04-17 10:17 | GI Progress Note ---
Assessment/Plan Problems: (1) Shock liver ICD Codes: K72.00 - Acute and subacute hepatic failure without coma SNOMED: 766562197 (2) Elevated liver enzymes ICD Codes: R74.8 - Abnormal levels of other serum enzymes SNOMED: 704044994, 634443826 (3) Arm pain ICD Codes: M79.603 - Pain in arm, unspecified SNOMED: 494122556 (4) rhabdomyolitis Status: stable Status Narrative Discussed with Dr. Quiñones. Assessment/Plan elevated LFTs most likely due to shock liver 2/2 rhabdo, will monitor at this time abdominal U/S reviewed >> Negative for gallstones or dilated ducts. Slightly coarsened hepatic echotexture, nonspecific if real, could indicate hepatocellular disease. okay for DC per GI standpoint rhabdo mgmt follow LFTs pain mgmt zofran prn electrolyte replacement fu labs Subjective Subjective patient ready to go home arm pain resolved Objective Last 24 Hour Vital Signs Date Time Temp Pulse Resp B/P (MAP) Pulse Ox O2 Delivery O2 Flow Rate FiO2 04/17/17 08:00 98.1 57 20 106/62 100 Room Air 04/16/17 23:09 98.2 58 18 112/64 99 Room Air 04/16/17 21:38 97.9 04/16/17 20:00 98.2 57 20 103/72 97 Room Air 04/16/17 12:57 97.9 04/16/17 11:22 97.9 78 18 146/72 100 Room Air Laboratory Tests Test 04/17/17 05:10 White Blood Count 8.4 K/UL (4.8-10.8) Red Blood Count 3.95 M/UL (4.20-5.40) L Hemoglobin 12.5 G/DL (12.0-16.0) Hematocrit 36.5 % (37.0-47.0) L Mean Corpuscular Volume 92 FL (80-99) Mean Corpuscular Hemoglobin 31.6 PG (27.0-31.0) H Mean Corpuscular Hemoglobin Concent 34.2 G/DL (32.0-36.0) Red Cell Distribution Width 11.3 % (11.6-14.8) L Platelet Count 188 K/UL (150-450) Mean Platelet Volume 8.3 FL (6.5-10.1) Neutrophils (%) (Auto) 38.8 % (45.0-75.0) L Lymphocytes (%) (Auto) 44.9 % (20.0-45.0) Monocytes (%) (Auto) 7.1 % (1.0-10.0) Eosinophils (%) (Auto) 8.2 % (0.0-3.0) H Basophils (%) (Auto) 0.9 % (0.0-2.0) Sodium Level 139 MMOL/L (136-145) Potassium Level 3.9 MMOL/L (3.5-5.1) Chloride Level 106 MMOL/L (98-107) Carbon Dioxide Level 27 MMOL/L (21-32) Anion Gap 6 mmol/L (5-15) Blood Urea Nitrogen 14 mg/dL (7-18) Creatinine 0.7 MG/DL (0.55-1.30) Estimat Glomerular Filtration Rate > 60 mL/min (>60) Glucose Level 88 MG/DL (74-106) Calcium Level 8.6 MG/DL (8.5-10.1) Magnesium Level 1.6 MG/DL (1.8-2.4) L Total Bilirubin 0.5 MG/DL (0.2-1.0) Aspartate Amino Transf (AST/SGOT) 162 U/L (15-37) H Alanine Aminotransferase (ALT/SGPT) 137 U/L (12-78) H Alkaline Phosphatase 47 U/L (46-116) Total Creatine Kinase 2387 U/L (26-308) H Total Protein 6.2 G/DL (6.4-8.2) L Albumin 3.2 G/DL (3.4-5.0) L Globulin 3.0 g/dL Albumin/Globulin Ratio 1.1 (1.0-2.7) Height (Feet): 5 Height (Inches): 7.00 Weight (Pounds): 138 General Appearance: WD/WN, no apparent distress, alert Cardiovascular: normal rate Respiratory/Chest: normal breath sounds, no respiratory distress Abdominal Exam: normal bowel sounds, non tender, soft Extremities: normal range of motion, non-tender Michelle Wick N.P. Apr 17, 2017 10:17
--- NOTE | 2017-04-17 11:56 | Diagnostic Imaging Report ---
Indication: Back pain Technique: 4 views of the lumbar spine Comparison: None Findings: Bony alignment is normal. Vertebral body heights are preserved. The lumbar disc spaces are preserved. There is slight narrowing of the T12-L1 and the T11-12 discs. The pedicles are intact. Sacral arches are preserved. Sacroiliac joint spaces are preserved. The facet joint spaces are preserved. Included extraspinal soft tissues are unremarkable Impression: No acute process Mild thoracolumbar degenerative change
[2017-04-17 12:00] VITALS: BP 114/68
--- NOTE | 2017-04-17 13:32 | Pulmonology Progress Note ---
Assessment/Plan Problems: (1) rhabdomyolitis (2) Arm pain Assessment/Plan improving cpk better dc home with outpatient follow up Subjective ROS Limited/Unobtainable: No Constitutional: Reports: no symptoms HEENT: Repors: no symptoms Respiratory: Reports: no symptoms Allergies: Coded Allergies: HYDROCODONE (Verified Allergy, Mild, Itching, 04/11/17) PHENOBARBITAL (Verified Allergy, Unknown, rash, 04/11/17) 25 years ago, rash Objective Last 24 Hour Vital Signs Date Time Temp Pulse Resp B/P (MAP) Pulse Ox O2 Delivery O2 Flow Rate FiO2 04/17/17 12:00 98.3 59 18 114/68 100 Room Air 04/17/17 08:00 98.1 57 20 106/62 100 Room Air 04/16/17 23:09 98.2 58 18 112/64 99 Room Air 04/16/17 21:38 97.9 04/16/17 20:00 98.2 57 20 103/72 97 Room Air General Appearance: WD/WN HEENT: normocephalic, atraumatic Respiratory/Chest: chest wall non-tender, lungs clear Breasts: no masses Cardiovascular: normal rate Abdomen: normal bowel sounds, soft, non tender Genitourinary: normal external genitalia Extremities: no clubbing Skin: no rash Laboratory Tests 04/17/17 05:10: White Blood Count 8.4, Red Blood Count 3.95L, Hemoglobin 12.5, Hematocrit 36.5L , Mean Corpuscular Volume 92, Mean Corpuscular Hemoglobin 31.6H, Mean Corpuscular Hemoglobin Concent 34.2, Red Cell Distribution Width 11.3L, Platelet Count 188, Mean Platelet Volume 8.3, Neutrophils (%) (Auto) 38.8L, Lymphocytes (%) (Auto) 44.9, Monocytes (%) (Auto) 7.1, Eosinophils (%) (Auto) 8.2H, Basophils (%) (Auto) 0.9, Sodium Level 139, Potassium Level 3.9, Chloride Level 106, Carbon Dioxide Level 27, Anion Gap 6, Blood Urea Nitrogen 14, Creatinine 0.7, Estimat Glomerular Filtration Rate > 60, Glucose Level 88, Calcium Level 8.6, Magnesium Level 1.6L, Total Bilirubin 0.5, Aspartate Amino Transf (AST/SGOT) 162H, Alanine Aminotransferase (ALT/SGPT) 137H, Alkaline Phosphatase 47, Total Creatine Kinase 2387H, Total Protein 6.2L, Albumin 3.2L, Globulin 3.0, Albumin/Globulin Ratio 1.1 ALEM SMITH Apr 17, 2017 13:32
--- NOTE | 2017-04-17 17:56 | Internal Med Progress Note ---
Subjective Date of Service: Apr 17, 2017 Physician Name Driss Worthington Attending Physician Indra Davis MD Allergies: Coded Allergies: HYDROCODONE (Verified Allergy, Mild, Itching, 04/11/17) PHENOBARBITAL (Verified Allergy, Unknown, rash, 04/11/17) 25 years ago, rash ROS Limited/Unobtainable: No Constitutional: Reports: no symptoms HEENT: Reports: no symptoms Cardiovascular: Reports: no symptoms Respiratory: Reports: no symptoms Gastrointestinal/Abdominal: Reports: no symptoms Genitourinary: Reports: no symptoms Neurologic/Psychiatric: Reports: no symptoms Subjective 32 YO F with bilat upper arm pain, now rhabdomyolysis. Cover for Int Med - Dr Davis. C/O Back pain Objective Last Vital Signs Date Time Temp Pulse Resp B/P (MAP) Pulse Ox O2 Delivery O2 Flow Rate FiO2 04/17/17 12:00 98.3 59 18 114/68 100 Room Air Laboratory Tests Test 04/17/17 05:10 White Blood Count 8.4 K/UL (4.8-10.8) Red Blood Count 3.95 M/UL (4.20-5.40) L Hemoglobin 12.5 G/DL (12.0-16.0) Hematocrit 36.5 % (37.0-47.0) L Mean Corpuscular Volume 92 FL (80-99) Mean Corpuscular Hemoglobin 31.6 PG (27.0-31.0) H Mean Corpuscular Hemoglobin Concent 34.2 G/DL (32.0-36.0) Red Cell Distribution Width 11.3 % (11.6-14.8) L Platelet Count 188 K/UL (150-450) Mean Platelet Volume 8.3 FL (6.5-10.1) Neutrophils (%) (Auto) 38.8 % (45.0-75.0) L Lymphocytes (%) (Auto) 44.9 % (20.0-45.0) Monocytes (%) (Auto) 7.1 % (1.0-10.0) Eosinophils (%) (Auto) 8.2 % (0.0-3.0) H Basophils (%) (Auto) 0.9 % (0.0-2.0) Sodium Level 139 MMOL/L (136-145) Potassium Level 3.9 MMOL/L (3.5-5.1) Chloride Level 106 MMOL/L (98-107) Carbon Dioxide Level 27 MMOL/L (21-32) Anion Gap 6 mmol/L (5-15) Blood Urea Nitrogen 14 mg/dL (7-18) Creatinine 0.7 MG/DL (0.55-1.30) Estimat Glomerular Filtration Rate > 60 mL/min (>60) Glucose Level 88 MG/DL (74-106) Calcium Level 8.6 MG/DL (8.5-10.1) Magnesium Level 1.6 MG/DL (1.8-2.4) L Total Bilirubin 0.5 MG/DL (0.2-1.0) Aspartate Amino Transf (AST/SGOT) 162 U/L (15-37) H Alanine Aminotransferase (ALT/SGPT) 137 U/L (12-78) H Alkaline Phosphatase 47 U/L (46-116) Total Creatine Kinase 2387 U/L (26-308) H Total Protein 6.2 G/DL (6.4-8.2) L Albumin 3.2 G/DL (3.4-5.0) L Globulin 3.0 g/dL Albumin/Globulin Ratio 1.1 (1.0-2.7) Objective General Appearance: WD/WN, no apparent distress, alert EENT: PERRL/EOMI, normal ENT inspection, TMs normal Neck: non-tender, normal alignment, supple Cardiovascular: normal peripheral pulses, normal rate, regular rhythm, no gallop/murmur, no JVD Respiratory/Chest: chest wall non-tender, lungs clear, normal breath sounds, no respiratory distress, no accessory muscle use Abdomen: normal bowel sounds, non tender, soft, no organomegaly, no mass Extremities: normal range of motion, non-tender Neurologic: plaster foreman II-XII grossly normal, no motor/sensory deficits Skin: normal pigmentation, warm/dry Assessment/Plan Problem List: (1) rhabdomyolitis Assessment & Plan: Improving. See ortho consult. (2) Arm pain Assessment & Plan: due to rhabdomyolysis (3) Elevated liver enzymes Assessment & Plan: Await GI consult. Abdominal ultrasound pending (4) Lumbar pain Assessment & Plan: Lumbar spine series. Naprosyn and flexeril prn Assessment/Plan D/C home today. F/U Dr Davis 1 week DRISS WORTHINGTON Apr 17, 2017 17:56
--- NOTE | 2017-04-18 12:08 | Discharge Summary ---
Discharge Summary Hospital Course Date of Admission Apr 11, 2017 at 13:30 Date of Discharge Apr 17, 2017 at 13:13 Admitting Diagnosis HPI Lea Dove is a 32 year old female who was admitted on Apr 11, 2017 at 13:30 for Rhabdomyolysis Hospital Course dc summary #[id number] Discharge Medications Medication Profile: No Active Prescriptions or Reported Meds Discharge Condition Upon Discharge: stable Discharge Disposition Patient was discharged to Home () Discharge Diagnoses: Ramon ([facility]),Meg RICCI Apr 18, 2017 12:08
--- NOTE | 2017-04-19 09:46 | Discharge Summary 2 SIG ---
DATE OF ADMISSION: 04/11/2017 DATE OF DISCHARGE: 04/17/2017 REASON FOR ADMISSION: 32-year-old female without any significant past medical history, presented with bilateral arm pain. According to the patient, she went to gym on Monday. She had not been exercised for some time and on Monday, she woke up with severe bilateral upper extremities pain. She felt like they were on fire. The patient initially presented to [facility]. CK found to be 25,603. The patient was transferred to [facility] for further evaluation with diagnosis of rhabdomyolysis. ADMITTING DIAGNOSES: 1. Bilateral upper extremity pain. 2. Acute rhabdomyolysis. 3. Elevated liver function tests. HOSPITAL STAY: The patient was admitted. The patient was on aggressive IV hydration. CK and LFT were closely monitored. CK and LFT were trending down. Prior to discharge, CK -2387, AST -162, ALT- 137 , all down from initial. Abdominal ultrasound was negative for gallstones or dilated ducts, slightly coarsened hepatic echotexture, nonspecific but could indicate hepatocellular disease. Hepatitis panel was negative. Nephrology followed. Elevated LFT were likely due to rhabdomyolysis versus shock liver. GI closely followed. Magnesium was replaced. GGTP within normal limits. The patient denied any alcohol dependency, using alcohol only socially. Orthopedic surgeon seen and evaluated the patient. Pain management was provided. Venous duplex bilateral upper extremities was negative. Renal parameters were stable. Renal ultrasound was negative. Noted elevated TSH, but normal free T4. Recommended to recheck thyroid function panel in one to two months. Orthopedic surgeon discussed with the patient extensively with regard to the care that could be provided. The patient had a full range of motion on the exam. Neurovascular exam was intact. He recommended supportive care for rhabdomyolysis with aggressive IV hydration. He doubted any permanent muscle damage due to rhabdomyolysis. The etiology of rhabdomyolysis could be working too hard at the physical exercise and pushing weight while she had not exercised for sometime versus dehydration versus unknown drugs. GI recommended symptomatic treatment. Antiemetic as needed. Electrolyte replacement as needed. The patient was stable for discharge home. FINAL DIAGNOSES: 1. Acute rhabdomyolysis. 2. Bilateral upper extremities pain. 3. Elevated liver function tests. 4. Hypomagnesemia. 5. Subclinical hypothyroidism. DISCHARGE MEDICATIONS: The patient does not need any medication. Encourage sufficient oral hydration. DISCHARGE INSTRUCTIONS: The patient was discharged home. Followup with the primary medical doctor in one week to check LFT, CK, and magnesium. Indra Davis M.D. Meg MarquezGarnet Healthcherie N.PJoselyn DR: Sabino JOB#: [id number] CC: JOE
--- NOTE | 2017-05-03 15:51 | Cardiology Report ---
APPROVED REPORT EKG Measurement Heart [id number] Sinus bradycardia Otherwise normal ECG
== END 2017-04-17 13:13 | disposition home or self-care (01) | DRG 558 ==
LOC: 4E 13:30
DX: M62.82 Rhabdomyolysis (principal); E83.42 Hypomagnesemia; E02 Subclinical iodine-deficiency hypothyroidism; Z88.6 Allergy status to analgesic agent; R74.8 Abnormal levels of other serum enzymes
CPT/HCPCS: 36415; 72110; 76700; 76775; 80048; 80053; 81001; 82550; 82553; 82977; 83735; 84100; 84133; 84300; 84439; 84443; 84484; 84550; 85025; 85651; 86140; 86705; 86709; 86803; 87340; 89050; 93005; 93970; J8499